=== PATIENT | male | born 1940 | race Caucasian/White ===

== ENCOUNTER 2017-11-04 05:20 | Day surgery (SDC) | payer MEDICARE, SELFPAY ==
[2017-11-04] VITALS (7 sets, daily range): BP systolic 105–139; BP diastolic 70–82; PULSE 68–72; RESP 14–16; TEMP 35.9–36.3; O2SAT 92–94
--- NOTE | 2017-11-04 06:47 | PCM.OPRPT ---
Problem List (1) Rectal bleed Status: Acute Report of Operation Date of Procedure: 11/04/17 Pre-Operative Diagnosis: Rectal bleeding Post-Operative Diagnosis: Patent ileocolonic anastomosis, moderate internal hemorrhoids, no active bleeding Surgery/Procedure Performed:: Colonoscopy Description of Surgical Findings:: Timeout and informed consent was obtained. 77-year-old gentleman was taken to the endoscopy suite. He was placed in left loud skin position. 75 mg Demerol and 2.5 g of Versed were given as intravenous sedation. Digital rectal exam performed. Tight anal tone. No significant external hemorrhoidal disease very minimal. Some mild internal hemorrhoidal disease. The patient is morbidly obese I could not digitally palpate the prostate. No active bleeding noted. Flexible colonoscope inserted the rectum advanced quite readily through the colon. The ileocolonic anastomosis from a previous right colectomy was readily achieved. Bowel prep was actually quite good. The scope was carefully withdrawn from the transverse descending sigmoid colon. Scope was retroflexed within the rectum. The anorectal verge inspected. Internal hemorrhoidal changes noted but not exuberant. No active bleeding. Excess fluid and air was aspirated free the procedure was completed with the patient tolerating it well. Impression Patent ileocolonic anastomosis. Moderate internal hemorrhoids No active bleeding The patient will be reinitiated on his Coumadin. I would recommend at this point fibrous augmentation and conservative observation. The patient's age medical comorbidities and body habitus places him at increased operative risk. If his symptoms resolve then I would not recommend any type of operative intervention. If his symptoms persist then consideration for internal surgical adenoidectomy could be considered. Previous colonoscopy was July 16, 2016 Colonoscopy recommended in 3 years Medications were given at 0626. Scope entered 0629. Cecum was reached at 0633.18. The scope was completed 0639.17. Cc: Dr. Braun and Dr. Félix Davila M.D., F.A.C.S. Type of Anesthesia:: IV Sedation
== END 2017-11-04 07:30 | disposition home or self-care (01) ==
LOC: EN 05:21 → AC 05:21
PROVIDERS: Family Provider Internal Medicine; PCP Internal Medicine; Visit Provider Surgery
PROC: 0DJD8ZZ Inspection of Lower Intestinal Tract, Via Natural or Artificial Opening Endoscopic (ICD-10-PCS; CPT 45378; principal; 2017-11-04 06:25)
DX: K63.89 Other specified diseases of intestine (principal); K64.8 Other hemorrhoids; Z85.038 Personal history of other malignant neoplasm of large intestine; R06.83 Snoring; Z86.2 Personal history of diseases of the blood and blood-forming organs and certain disorders involving the immune mechanism; K21.9 Gastro-esophageal reflux disease without esophagitis; I25.10 Atherosclerotic heart disease of native coronary artery without angina pectoris; Z86.718 Personal history of other venous thrombosis and embolism; Z87.19 Personal history of other diseases of the digestive system; E66.01 Morbid (severe) obesity due to excess calories; E78.5 Hyperlipidemia, unspecified; I87.8 Other specified disorders of veins; Z90.49 Acquired absence of other specified parts of digestive tract; Z79.01 Long term (current) use of anticoagulants; Z79.899 Other long term (current) drug therapy
CPT/HCPCS: 45378; J7120

== ENCOUNTER → 2018-05-19 13:20 | Outpatient (CLI) | payer MEDICARE, SELFPAY ==
--- NOTE | 2018-05-19 13:22 | RAD_ITS ---
STUDY: X-RAY - RIGHT KNEE REASON FOR EXAM: Male, 77 years old. Chronic knee pain. TECHNIQUE: 4 view(s) of the knee. COMPARISON: None. FINDINGS: There is generalized osteopenia. Normal visualized distal femur. There is an osteochondral lesion of the medial tibial plateau. Normal proximal tibiofibular articulation. There is moderate arthrosis of the medial compartment and the patellofemoral compartments of the right knee. There is a joint effusion. There is marked vascular calcification. RAD/Knee 4 or More Views IMPRESSION: Osteopenia with medial and patellofemoral compartment arthrosis. Osteochondral lesion of the medial tibial plateau. Small joint effusion. Electronically Signed: Diogo Abdi MD at 18:23 EDT , Service support ,
== END ==
PROVIDERS: Family Provider Internal Medicine; PCP Internal Medicine; Visit Provider Orthopaedic Surgery
DX: M25.561 Pain in right knee (principal)
CPT/HCPCS: 73564

== ENCOUNTER → 2018-06-07 12:24 | Outpatient (CLI) | payer MEDICARE, SELFPAY ==
--- NOTE | 2018-06-07 12:26 | MRI_ITS ---
STUDY: MRI RIGHT KNEE REASON FOR EXAM: Right knee pain for 8 months. TECHNIQUE: Standardized fat and water weighted pulse sequences were obtained in all 3 orthogonal planes. COMPARISON: Radiographs 05/19/2018. FINDINGS: There is a radial tear of the posterior horn of the medial meniscus (T2 coronal images 10, 11). There is peripheral subluxation of the medial meniscus. There is arthrosis of the medial femorotibial compartment with chondral thinning and a subchondral lesion of the medial tibial plateau (proton-density sagittal images 30-32) measuring 1.8 x 0.9 cm (AP x transverse) with mild adjacent bone edema. Normal medial collateral ligamentous complex (MCL). Normal distal semimembranosus, gracilis and semitendinosus tendons. Normal lateral meniscus. Normal hyaline cartilage of the lateral femorotibial compartment. Normal lateral femoral condyle and tibial plateau. Normal proximal tibiofibular articulation. Normal lateral collateral (fibular) ligament. Normal popliteus tendon. Normal biceps femoris tendon. Normal anterior cruciate ligament (ACL). Normal posterior cruciate ligament (PCL). Normal congruent patellofemoral articulation. There is high-grade chondromalacia patellae (T2 sagittal image 11). Normal medial and lateral patellar retinaculum. Normal visualized quadriceps tendon. Normal patellar tendon. Normal Hoffa's fat pad. There is a small joint effusion. There is a very small popliteal cyst (T2 sagittal images 18-20). There is mild edema in the anterior subcutis adipose space. The otherwise visualized osseous structures are unremarkable. MRI/Lower Ext Joint Only (Routine) IMPRESSION: Radial tear of the medial meniscus. Arthrosis of the medial femorotibial compartment with a subchondral lesion of the medial tibial plateau. Chondromalacia patellae. Small joint effusion. Very small popliteal cyst. Electronically Signed: Bertin Sheehan MD at 13:56 EDT Tel , Service support ,
== END ==
PROVIDERS: Family Provider Internal Medicine; PCP Internal Medicine; Referring Provider Orthopaedic Surgery; Visit Provider Orthopaedic Surgery
DX: M17.11 Unilateral primary osteoarthritis, right knee (principal); M95.8 Other specified acquired deformities of musculoskeletal system
CPT/HCPCS: 73721

== ENCOUNTER → 2018-08-12 09:55 | Outpatient (CLI) | payer MEDICARE, SELFPAY ==
[2018-08-12 11:12] LABS: Hematocrit 43.7 % (40-54); Hemoglobin 13.9 g/dl (13.0-16.5); Mean Corp Hgb Conc 31.8 g/gl (32-36); Mean Corpuscular Hgb 32.8 pg (27.0-32.0); Mean Corpuscular Volume 103.1 fL (80-94); Mean Platelet Vol. 10.4 fl (6.2-12.0); Platelet Count 145 K/mm3 (150-450); RBC Distribution Width CV 13.8 % (11.6-14.6); RBC Distribution Width SD 51.8 fl (35.1-43.9); Red Blood Count 4.24 M/mm3 (4.6-6.2); White Blood Count 5.3 K/mm3 (4.4-11.0)
[2018-08-12 11:14] LABS: Scan Indicated on CBC? Y/N NO
[2018-08-12 11:45] LABS: Anion Gap 6 (5-15); BUN 17 mg/dL (7-18); BUN/Creat Ratio 16.8 RATIO (10-20); Calcium,Total 8.8 mg/dL (8.5-10.1); Chloride 105 mmol/L (98-107); Creatinine, Serum 1.01 mg/dL (0.70-1.30); EST Glomerular Filtration Rate 76 mL/min (>60); Est Glom Filt Rate - Afr Amer 92 mL/min (>60); Glucose 100 mg/dL (74-106); Potassium 4.3 mmol/L (3.5-5.1); Sodium Level 142 mmol/L (136-145)
--- OUTSIDE RECORDS SUMMARY | 2018-09-28 00:27 | XMS RPT_ITS ---
:1940 Author Organization OHIP Support Name Relationship Address Phone Jodie lBack Unavailable Unavailable + Jodie Black Unavailable Unavailable + SofiaCollin blancie Unavailable Unavailable + SOFIA JODIE Unavailable [address] + [place] [address] R Unavailable Unavailable Unavailable SOFIA JODIE Unavailable [address] + [place] [address] R Unavailable Unavailable Unavailable JODIE BLACK Unavailable [address] + [place] [address] R Unavailable Unavailable Unavailable JODIE BLACK Unavailable [address] + [place] [address] R Unavailable Unavailable Unavailable SOFIACOLLINIE Unavailable [address] + [place] [address] R Unavailable Unavailable Unavailable Sofia Jodie Unavailable Unavailable + Jodie Black Unavailable Unavailable + Jodie Black Unavailable Unavailable + JODIE BLACK Unavailable [address] + [place] [address] R Unavailable Unavailable Unavailable JODIE BLACK Unavailable [address] + [place] [address] R Unavailable Unavailable Unavailable JODIE BLACK Unavailable [address] + [place] [address] R Unavailable Unavailable Unavailable Care Team Providers Name Role Phone JORDAN LUGO Attending Unavailable JORDAN LUGO Referring Unavailable Sarmad Strickland Primary Care Unavailable Ji Davila Attending Unavailable Imelda Tyler BELT MAKER-C Referring Unavailable Strickland, Sarmad Primary Care Unavailable Cebul, Ji Attending Unavailable Strickland, Sarmad Primary Care Unavailable Cebul, Ji Referring Unavailable Cebul, Ji Attending Unavailable Cebul, Ji Referring Unavailable Strickland, Sarmad Primary Care Unavailable Cebul, Ji Consulting Unavailable Chicorelli, Kenia Attending Unavailable Strickland, Sarmad Referring Unavailable Strickland, Sarmad Primary Care Unavailable Chicorelli, Kenia Attending Unavailable Chicorelli, Kenia Referring Unavailable Strickland, Sarmad Primary Care Unavailable Chicorelli, Kenia Attending Unavailable Chicorelli, Kenia Referring Unavailable Strickland, Sarmad Primary Care Unavailable WayMason williamson Attending Unavailable Strickland, Sarmad Referring Unavailable Moawad, Jj Attending Unavailable PROVIDER, UNKNOWN Referring Unavailable Strickland, Sarmad Primary Care Unavailable [place], Jj Attending Unavailable PROVIDER, UNKNOWN Referring Unavailable Strickland, Sarmad Primary Care Unavailable [place], Jj Attending Unavailable PROVIDER, UNKNOWN Referring Unavailable Strickland, Sarmad Primary Care Unavailable [place], Jj Attending Unavailable PROVIDER, UNKNOWN Referring Unavailable Strickland, Sarmad Primary Care Unavailable [place], Jj Attending Unavailable PROVIDER, UNKNOWN Referring Unavailable Strickland, Sarmad Primary Care Unavailable [place], Jj Attending Unavailable PROVIDER, UNKNOWN Referring Unavailable Strickland, Sarmad Primary Care Unavailable STRICKLAND, SALONI Referring Unavailable TYLER, IMELDA (SPRAY MAKER) Referring Unavailable TYLER, IMELDA (SPRAY MAKER) Referring Unavailable TYLER, IMELDA (SPRAY MAKER) Referring Unavailable STRICKLAND, SALONI Referring Unavailable TYLER, IMELDA (SPRAY MAKER) Attending Unavailable TYLER, IMELDA (SPRAY MAKER) Referring Unavailable OLDER, AIDEE (SPRAY MAKER) Attending Unavailable STRICKLAND, SALONI Referring Unavailable TYLER, IMELDA (SPRAY MAKER) Referring Unavailable TYLER, IMELDA (SPRAY MAKER) Attending Unavailable TYLER, IMELDA (SPRAY MAKER) Referring Unavailable TYLER, IMELDA (SPRAY MAKER) Referring Unavailable TYLER, IMELDA (SPRAY MAKER) Referring Unavailable TYLER, IMELDA (SPRAY MAKER) Referring Unavailable STRICKLAND, SALONI Referring Unavailable PROBLEMS PROBLEMS DATE TYPE CONDITION / CODE ATTENDING STATUS SOURCE 09/07/2018 Admitting Abdominal aortic Jj Escobar [facility] Diagnosis aneurysm, without System rupture / Repository I71.4(ICD-10) 09/07/2018 Admitting Hyperlipidemia, Jj Escobar Active [facility] Diagnosis unspecified / System E78.5(ICD-10) Repository 09/07/2018 Admitting Personal history of [place], Jj [facility] Diagnosis malignant neoplasm System of large intestine / Repository Z85.038(ICD-10) 09/07/2018 Admitting Encounter for [place], Jj [facility] Diagnosis preprocedural System cardiovascular Repository examination / Z01.810(ICD-10) 09/07/2018 Admitting Nonrheumatic aortic [place], Jj [facility] Diagnosis (valve) stenosis / System I35.0(ICD-10) Repository 09/07/2018 Admitting Cardiomegaly / [place], Jj [facility] Diagnosis I51.7(ICD-10) System Repository 09/07/2018 Admitting Peripheral vascular [place], Jj [employer] [facility] Diagnosis angioplasty status w System implants and grafts Repository / Z95.820(ICD-10) 09/07/2018 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[place], Jj [facility] Diagnosis use of aspirin / System Z79.82(ICD-10) Repository 09/07/2018 Admitting Personal history of [place], Jj [employer] Diagnosis other venous System thrombosis and Repository embolism / Z86.718(ICD-10) 09/07/2018 Admitting Encounter for other [place], Jj [employer] Diagnosis preprocedural System examination / Repository Z01.818(ICD-10) 09/07/2018 Admitting Oth complication of [place], Jj [employer] Diagnosis vascular prosth System dev/grft, init / Repository T82.898A(ICD-10) 09/07/2018 Admitting Other specified [place], Jj [facility] Diagnosis disorders of veins / System I87.8(ICD-10) Repository 09/07/2018 Admitting Morbid (severe) [place], Jj [facility] Diagnosis obesity due to System excess calories / Repository E66.01(ICD-10) 09/07/2018 Admitting Body mass index [place], Jj [facility] Diagnosis (BMI) 40.0-44.9, System adult / Repository Z68.41(ICD-10) 08/29/2018 Active Other correction Active [facility] (current) drug Clinic Main therapy / [place] Z79.899(ICD-10) Repository 08/26/2018 Admitting Unspecified [place], Jj [employer] Diagnosis osteoarthritis, System unspecified site / Repository M19.90(ICD-10) 08/26/2018 Admitting Prsnl history of dis [place], Jj [facility] Diagnosis of the bld/bld-form System org/immun mechn / Repository Z86.2(ICD-10) 08/26/2018 Admitting Benign prostatic [place], Jj [employer] Diagnosis hyperplasia without System lower urinry tract Repository symp / N40.0(ICD-10) 08/26/2018 Admitting Venous insufficiency Mo[place]ad, Jj [employer] 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 Diagnosis vascular implants System and grafts / Repository Z95.828(ICD-10) 02/03/2018 Admitting Benign prostatic [place], Jj [employer] 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 / Clinic Main C18.2(ICD-10) [place] Repository 11/03/2017 Unknown Z85.038 - Personal CebulJi Active [place] history of other Community malignant neoplasm Hospital of large intestine / Repository Z85.038(ICD-10) 11/03/2017 Unknown K62.5 - Hemorrhage CebulJi Active [place] of anus and rectum / Community K62.5(ICD-10) Hospital Repository PROCEDURES PROCEDURES No Procedure Records FoundRESULTS RESULTS ECHO DOBUTAMINE STRESS Observed: 09/07/2018 Status: F Source: [employer] ECHO W/WO CONT 2:10 PM SYSTEM REPOSITORY Patient Name: CORINE BLACK Ultrasound Exam Date/Time 09/07/2018 15:39:53 EST Exam Echo Dobutamine Stress Echo w/wo Cont Ordering Physician JJ ESCOBAR Accession Number [id number] Reason For Exam preop cardiac clearance exam Report STRESS ECHOCARDIOGRAM Dobutamine PATIENT: Corine Black STUDY DATE: 09/07/2018 : 1940 AGE: 78 HT/WT: 172.7 cm (68 127 kg in) (279.4 lb) GENDER: M BP: 150 / 99 LOCATION: [facility] [employer] [facility] and PATIENT Outpatient [facility] STATUS: *ORDERING PHYSICIAN: * Jj Escobar MD *SUPERVISING PHYSICIAN: * Cindy *RN: * Kristin Corley Jeanine Iler, MD, [facility] *READING PHYSICIAN: * Cindy Odonnell, *BARBER: * Yolanda Teague RDCS, MANDY MUELLER, [facility] Oliver Schafer RDCS --- INDICATIONS: Pre-op cardiovascular exam Z01.810. --- HISTORY: Dyslipidemia. Denies cardiac symptoms Colon CA, AAArepair 2012 Medications: Aspirin. Atorvastatin (Lipitor). Allergies: Patient is NPO per policy. --- CONCLUSIONS SUMMARY: 1. Stress echo: There is no evidence for stress-induced ischemia at 95% MPHR. 2. Aortic valve: There is moderate stenosis. Mean gradient (S): 30 mm Hg with dobutamine, 24 mmHg at rest. Peak gradient (S): 62 mm Hg. 3. Aorta: The aorta is mildly dilated to 4.1 cm. 4. Stress ECG conclusions: The stress ECG is normal. --- STUDY DATA: Stress echocardiogram. Procedure: Initial setup. A baseline ECG was recorded. Surface ECG leads and blood pressure measurements were monitored. Total intravenous fluids received during the test were 150 ml. Image quality was adequate. The study was technically limited due to body habitus and respiratory interference. Intravenous imaging enhancement (Definity) was administered to opacify the chamber. Definity lot #: [id number]. Definity dose administered: 8 ml. Definity wasted: 2 ml. Dobutamine stress test. Stress testing was performed, with dobutamine by intravenous infusion from 10 to 30 mcg/kg/min. Heart rate response was augmented by the addition of hand smoke jumper. The infusion was terminated due to target heart rate achievement. Transthoracic stress echocardiography. Images were captured at baseline, low dose, peak dose, and recovery. Total time of infusion 8 min 1 sec M-mode, limited 2D, limited spectral Doppler, and color flow Doppler images were acquired and archived for permanent storage and are available for subsequent review. Study status: Routine. Patient status: Outpatient. Pre pain assessment is 0 out of 10. Post pain assessment is 0 out of 10. Location: Echo laboratory. Consent: The procedure was reviewed with the patient and the patient voices understanding. Study completion: The patient tolerated the procedure well. There were no complications. Discharge: Discharge instructions given The patient was discharged to homewhile ambulatory. --- FINDINGS LEFT VENTRICLE: The cavity size is normal. Wall thickness is normal. Systolic function is normal by visual assessment. The estimated ejection fraction is 60%. There are no regional wall motion abnormalities. RIGHT VENTRICLE: The cavity size is normal. Wall thickness is normal. Systolic function is normal. Right ventricular systolic pressure is within the normal range. MITRAL VALVE: Moderately calcified annulus. Doppler: There is trivial, less than 1+ regurgitation. Valve area by continuity equation (using LVOT flow): 2.5 cm2. Mean gradient (D): 3 mm Hg. Peak gradient (D): 7 mm Hg. AORTIC VALVE: Trileaflet; moderately thickened, moderately calcified leaflets. Doppler: There is moderate stenosis. There is mild, 1+ regurgitation. Dimensionless index: 0.68. Valve area (VTI): 2.4 cm2. Indexed valve area (VTI): 1 cm2/m2. Mean gradient (S): 30 mm Hg. Peak gradient (S): 62 mm Hg. Peak velocity (S): 3.9 m/sec. TRICUSPID VALVE: Structurally normal valve. Doppler: There is no significant regurgitation at rest, peak exercise (MCG 30) RVSP=54 mmHg. AORTA: The aorta is mildly dilated to 4.1 cm. PERICARDIUM: There is no pericardial effusion. BASELINE ECG: Normal sinus rhythm. Isolated atrial ectopy. STRESS PROTOCOL: + +---+ + + !Stage !HR !BP (mmHg) !Symptoms ! + +---+ + + !Baseline !75 !150/99 (116)!None ! + +---+ + + !Dobutamine 10 ug/kg/min!79 !158/71 (100)!Palpitations! + +---+ + + !Peak stress !134!128/65 (86) !Palpitations! + +---+ + + !Recovery; 2 min !127!130/58 (82) !Subsiding ! + +---+ + + !Late recovery !96 !132/74 (93) !None ! + +---+ + + STRESS RESULTS: Peak heart rate during stress was 134 bpm (95% of maximal predicted heart rate). The maximal predicted heart rate was 141 bpm.The target heart rate was achieved. The heart rate response to stress was normal. There is an appropriate response to stress. The rate-pressure product for the peak heart rate and blood pressure was 32446 mm Hg/min. The patient experienced no chest pain during stress. STRESS ECG: There was no ischemic ST depression. There are no stress arrhythmias or conduction abnormalities. The stress ECG is normal. Upsloping ST depression: 0.5-1 mm. Baseline: Normal wall motion; no LV regional wall motion abnormalities. Wall motion score: 1.00. Low dose: No evidence for new LV regional wall motion abnormalities. Peak dose: LV global systolic function is vigorous. The estimated LV ejection fraction is 80%. No evidence for new LV regional wall motion abnormalities. STRESS ECHO RESULTS: There is no evidence for stress- induced ischemia at 95% MPHR. --- Measurements Left ventricle Value Reference LV end-diastolic volume, 1-p A4C (H) 158 ml 67 - 155 LV end-systolic volume, 1-p A4C 35 ml 22 - 58 LV end-diastolic volume, 2-p 147 ml 67 - 155 LV end-systolic volume, 2-p 45 ml 22 - 58 LVOT Value Reference LVOT ID, A-P 2.1 cm --------- LVOT mean velocity, S 1.2 m/sec --------- LVOT VTI, S 28.4 cm --------- LVOT peak gradient, S 12 mm Hg --------- Stroke volume (SV), LVOT DP 100 ml --------- Stroke index (SV/bsa), LVOT DP 40 ml/m2 --------- Aortic valve Value Reference Aortic valve peak velocity, S 3.9 m/sec --------- Aortic valve mean velocity, S 2.6 m/sec --------- Aortic valve VTI, S 41.6 cm --------- Aortic mean gradient, S 30 mm Hg --------- Aortic peak gradient, S 62 mm Hg --------- DI 0.68 --------- Aortic valve area, VTI 2.4 cm2 --------- Aortic valve area/bsa, VTI 1 cm2/m2 --------- Aorta Value Reference Aortic root ID 3.5 cm <4.5 Aortic root ID, STJ, ED 3.0 cm --------- Ascending aorta ID, A-P 4.1 cm --------- Mitral valve Value Reference Mitral mean gradient, D 3 mm Hg --------- Mitral peak gradient, D 7 mm Hg --------- Mitral valve area, LVOT continuity 2.5 cm2 --------- Tricuspid valve Value Reference Tricuspid regurg peak velocity 3.7 m/sec --------- Legend: (L) and (H) cindy values outside specified reference range. Electronically signed by Cindy Odonnell MD, ANTOINETTE 09/07/2018 16:41 Final Dictated: 09/07/2018 4:42 pm Dictating Physician: MD. ANNIE, CINDY CURRY Signed Date and Time: 09/07/2018 4:41 pm Signed by: MD. ODONNELL FACC, MARK A HEMOGRAM Collected: 09/07/2018 Status: F Source: [facility] 11:09 AM SYSTEM REPOSITORY TYPE CODE TESTS RESULT OUT OF RANGE REFERENCE UNITS LAB IWBC 3.6-10.7 10*3/uL WBC Normal 5.4 LAB RBC 4.40-5.90 10*6/uL Low RBC 4.12 LAB HGB 13.0-18.0 g/dL Normal Hemoglobin 13.8 LAB HCT 40.0-52.0 % Normal Hematocrit 41.7 LAB MCV 80.0-98.0 fL High MCV 101.1 LAB MCH 26.0-34.0 pg MCH Normal 33.5 LAB MCHC 32.0-36.0 % MCHC Normal 33.1 LAB RDW 11.5-14.5 % RDW Normal 14.4 LAB PLT 140-440 10*3/uL Platelet Normal 184 LAB MPV 7.4-10.4 fL MPV Normal 8.5 Performed By: #### EDSON CAGLE3 #### [facility] [employer] [address] [address] BASIC METABOLIC PANEL Collected: 09/07/2018 Status: F Source: [facility] 11:09 AM SYSTEM REPOSITORY TYPE CODE TESTS RESULT OUT OF RANGE REFERENCE UNITS LAB NA3 135-145 mmol/L Sodium Normal 141 LAB K3 3.5-5.1 mmol/L Normal Potassium 4.6 LAB CL3 98-107 mmol/L Chloride Normal 104 LAB CO23 22-30 mmol/L High Carbon Dioxide 31 LAB ANIN3 NA Anion Gap 5 LAB GLUC3 70-100 mg/dL Glucose Normal 93 LAB BUN3 7-20 mg/dL Urea Normal Nitrogen 20 LAB CRET3 0.52-1.25 mg/dL Normal Creatinine 0.96 LAB GF3BR >60 mL/min eGFR > 60.0 LAB GF3WR >60 mL/min eGFR OTHER > 60.0 Result Comment: Source- MDRD equation with creatinine calibration to IDMS(NKDEP) eGFR not recommended for drug dose adjustment LAB CA3 8.4-10.4 mg/dL Normal Calcium 9.0 Performed By: #### EDSON CAGLE3 #### [address] [address] BASIC METABOLIC PANL Collected: 08/29/2018 Status: F Source: [facility] 10:18 AM [facility]IN[facility] REPOSITORY TYPE CODE TESTS RESULT OUT OF REFERENCE UNITS RANGE LAB GLU 74-99 mg/dL High Glucose 104 Result Comment: The [place] Diabetes [employer] (ADA) provides guidance for cutoff values for fasting glucose and random glucose. The ADA defines fasting as no caloric intake for at least 8 hours. Fas ting plasma glucose results between 100 to 125 mg/dL indicate increased risk for diabetes (prediabetes). Fasting plasma glucose results greater than or equal to 126 mg/dL meet the criteria for diagnosis of diabetes. In the absence of unequivocal hyperglycemia, results should be confirmed by repeat testing. In a patient with classic symptoms of hyperglycemia or hyperglycemic crisis, random plasma glucose results greater than or equal to 200 mg/dL meet the criteria for diagnosis of diabetes. Reference: Standards of Medical Care in Diabetes 2016, [place] [employer]. Diabetes Care. 2016.39(Suppl 1). LAB BUN 9-24 mg/dL BUN 15 LAB CRET 0.73-1.22 mg/dL Creatinine 0.91 LAB NA 136-144 mmol/L Sodium 141 LAB K 3.7-5.1 mmol/L Potassium 4.7 LAB CL 97-105 mmol/L Chloride 102 LAB CO2 22-30 mmol/L CO2 29 LAB AGAP 9-18 mmol/L Anion Gap 10 LAB CA 8.5-10.2 mg/dL Calcium, Total 9.0 LAB GFRAA eGFR- Amer. >60 LAB GFRNAA . eGFR-All Other Races >60 Result Comment: eGFR (Estimated GFR) Units of measure: mL/min/1.73 meters squared eGFR is derived from the reexpressed MDRD Study equation using the following parameters: serum creatinine, age, gender and race. The creatinine assay has been calibrated to be traceable to IDMS. An eGFR <60 mL/min/1.73m2 for >3 months is consistent with chronic kidney disease. Refer to KDOQI guidelines for clinical interpretation. In patients with unstable renal function, e.g. those with acute kidney injury, the eGFR may not accurately reflect actual GFR. Performed By: #### BMP, LIPB #### [facility] [address] [place] [address] LIPID PANEL, BASIC Collected: 08/29/2018 Status: F Source: [facility] 10:18 AM [facility] REPOSITORY TYPE CODE TESTS RESULT OUT OF REFERENCE UNITS RANGE LAB CHOL <200 mg/dL Cholesterol 145 Result Comment: <200 mg/dL, Desirable 200-239 mg/dL, Borderline high >239 mg/dL, High LAB TRIGLY <150 mg/dL Triglyceride 75 Result Comment: <150 mg/dL, Normal 150-199 mg/dL, Borderline high 200-499 mg/dL, High >499 mg/dL, Very high LAB HDL >39 mg/dL HDL-Cholesterol 46 Result Comment: 40-59 mg/dL, Acceptable >59 mg/dL, High: Negative risk factor for coronary heart disease <40 mg/dL, Low: Positive risk factor for coronary heart disease LAB LDL <100 mg/dL LDL-Cholesterol 84 Result Comment: <100 mg/dL, Optimal 100-129 mg/dL, Near optimal/above optimal 130-159 mg/dL, Borderline high 160-189 mg/dL, High >189 mg/dL, Very high Secondary prevention optimal LDL Cholesterol levels are recommended to be < 70 mg/dL LAB NONHDL <130 mg/dL Non HDL Cholesterol 99 Result Comment: <130 mg/dL, Optimal 130-159 mg/dL, Near optimal/above optimal 160-189 mg/dL, Borderline high 190-219 mg/dL, High >219 mg/dL, Very high Secondary prevention optimal non HDL Cholesterol levels are recommended to be < 100 mg/dL LAB FT hrs Fasting Time 12 LAB VLDL <30 mg/dL VLDL Cholesterol 15 LAB TCHDL <5.10 TC:HDL Ratio 3.15 LAB LDLHDL <2.54 LDL:HDL Ratio 1.83 Result Comment: Reference: 1. National Cholesterol Education Program ATP III Guideline At-A-Glance Quick Desk Reference: National Heart, Lung, and Blood [place]. National Institutes of Health. 2001: NIH Publication No. 01-3305. 2. An International Atherosclerosis Society position paper: global recommendations for the management of dyslipidemia: executive summary, Atherosclerosis. 2014: 232(2):410-413. Performed By: #### BMP, LIPB #### [place] [id number] OP NOTE Observed: 08/26/2018 Status: F Source: [facility] 6:15 PM SYSTEM REPOSITORY PATIENT: CORINE BLACK ADMISSION DATE: 08/26/2018 SURGERY DATE: 08/26/2018 DATE OF : 1940 AGE: 78 ADMITTING PHYSICIAN: Jj Escobar MD ATTENDING PHYSICIAN: Jj Escobar MD DICTATING PHYSICIAN: Jj Escobar MD OPERATIVE RECORD Procedure: AORTOGRAM AND LEFT ILIAC ANGIOGRAM VIA LEFT FEMORAL SHEATH. Preoperative Diagnosis: Enlarging abdominal aortic aneurysm, status post endovascular aneurysm repair. Postoperative Diagnosis: Enlarging abdominal aortic aneurysm, status post endovascular aneurysm repair. Anesthesia: MAC. Bone Tender: Lincoln Ball M.D. Estimated Blood Loss: 25 mL. Contrast: Visipaque 100 mL. Indications: This patient is a 78-year-old gentleman with a history of infrarenal abdominal aortic aneurysm and bilateral iliac aneurysms, status post endovascular repair including exclusion of the right hypogastric artery 5 years ago. The aneurysm has been gradually increasing in size, now measuring 9.2 cm in diameter on outside CT scan. He presents now for evaluation for endoleak. Findings: There is approximately a 5 mm gap and wall apposition of the distal extent of the left common iliac stent with the aneurysmal common iliac bifurcation wall. Initially, a guidewire easily tracked up to the more proximal common iliac artery. There are at least 2 small lumbar arteries that are seen but do not fill the aneurysm sac. The aortic seal zones and modular connections are all intact. The right external iliac seal zone is intact. There is a patent left hypogastric artery. There is severe scar tissue of the left groin. Bilateral dorsalis pedis and posterior tibial Doppler signals were present and unchanged before and after the procedure. Description of Procedure: After informed consent, the patient was brought to the hybrid operating room and placed supine. After IV sedation had been given. Both groins were prepped and draped in sterile fashion. Following infiltration of 1% lidocaine, the left common femoral artery was punctured percutaneously with an 18-gauge needle and an 0.035 Bentson wire advanced. A 5-Vietnamese sheath could not track over the wire due to scar tissue. A 6-Vietnamese hydrophilic dilator was passed. The sheath still could not advance. Using a 0.035 [place] catheter, the wire was exchanged for a Lunderquist wire. A 5-Vietnamese sheath tracked over the Lunderquist wire into the left common femoral artery. There was excellent pulsatile backbleeding. The Lunderquist wire was then removed and a Bentson wire was used. The Bentson wire initially tracked between the outer wall of the left common iliac stent. An Omni Flush catheter was then advanced to the common femoral bifurcation and this easily tracked into the true lumen of the left iliac stent into the aortic portion of the graft without difficulty. AP and oblique aortograms were then performed with the catheter at the level of the renal arteries. The catheter was then pulled down to the aortic bifurcation. AP and oblique aortoiliac angiograms were performed with a calibrated pigtail catheter for measurement. The catheter was then pulled back. The patient was then transferred to the labor relations manager prep in the recovery area where the sheath was removed. Manual pressure was held. There was excellent hemostasis. There were good bilateral Doppler signals. Plan for left iliac extension is discussed with the patient and his son after ordering stent graft and undergoing a preoperative cardiac evaluation. Diskriter Job ID: [id number] Jj Escobar MD DOD:08/26/2018 06:15 P JAM/dsk DOT:08/26/2018 08:31 P Job Number: [id number] Document Number: [id number] cc: Jj Escobar MD [facility], [facility] [address] [facility] [address] CREATININE Collected: 08/26/2018 Status: F Source: [facility] 12:33 PM SYSTEM REPOSITORY TYPE CODE TESTS RESULT OUT OF RANGE REFERENCE UNITS LAB CRET3 0.52-1.25 mg/dL Normal Creatinine 0.76 LAB GF3BR >60 mL/min eGFR > 60.0 LAB GF3WR >60 mL/min eGFR OTHER > 60.0 Result Comment: Source- MDRD equation with creatinine calibration to IDMS(NKDEP) eGFR not recommended for drug dose adjustment Performed By: #### CRTN3 #### [facility] [address] [place] [id number] CNPTOUTREACH Observed: 08/16/2018 Status: COMPLETED Source: [place] 12:[address] [facility] REPOSITORY Patient Outreach ([facility]) CORINE BLACK ([id number]) 1940 M Date Time Provider Department 08/16/18 SARMAD STRICKLAND [facility] During your visit today, we recorded the following information about you: Allergies As of Date: 08/16/2018 (No Known Allergies) Date Reviewed: 07/27/2018 Reviewed by: Sobeida Conley Ct - Fully Assessed Visit Diagnosis:Medication management [Z79.899] Order(s):BASIC METABOLIC PNL [SQBMP] Order #: [id number] FUTURE LIPID PANEL BASIC [SQLIPB] Order #: [id number] FUTURE Prescriptions as of 08/16/2018 Sig: ACETAMINOPHEN ER 650 MG TABLE* Take 1,300 mg by mouth as nee* ASPIRIN 81 MG TABLET,DELAYED * Take 1 tablet by mouth once d* ATORVASTATIN 20 MG TABLET TAKE 1 TABLET DAILY AT BEDTIM* COMPOUNDED PRESCRIPTION KNEE HIGH COMPRESSION STOCKIN* HYDROCODONE 5 MG-ACETAMINOPHE* Take 1 tablet by mouth every * MOMETASONE 0.1 % TOPICAL OINT* Apply 1 application to affect* NAPROXEN SODIUM 220 MG TABLET Take 220 mg by mouth as neede* Problem List As Of Date 08/16/2018 Noted Resolved DVT, recurrent, lower extremity, chronic [I82.5*INVALID FOR* More... Hyperlipidemia [E78.5] INVALID FOR* More... VENTRAL HERNIA NEC [K43.9] INVALID FOR*12/04/2014 Obesity, Class III, BMI 40-49.9 (morbid obesity*INVALID FOR* SYNCOPE AND COLLAPSE [R55] INVALID FOR*10/22/2006 More... BPH with obstruction/lower urinary tract sympto*INVALID FOR* Impotence of organic origin [N52.9] INVALID FOR*06/05/2014 Lumbago [M54.5] INVALID FOR*06/05/2014 Venous stasis dermatitis [I83.10] INVALID FOR* Pelvic hematoma in male [N50.1] INVALID FOR*06/05/2014 More... Actinic Keratoses (Premalignant AK's) [L57.0] INVALID FOR* Neoplasm of uncertain behavior of skin [D48.5] INVALID FOR*06/05/2014 Other seborrheic keratosis [L82.1] INVALID FOR* Solar Lentigines [L81.4] INVALID FOR*02/28/2016 Actinic skin damage [L57.8] INVALID FOR*02/28/2016 Xerosis cutis [L85.3] INVALID FOR*06/05/2014 Postinflammatory skin changes [R23.4] INVALID FOR*06/05/2014 Stucco keratosis [L85.1] INVALID FOR*02/28/2016 Iron deficiency anemia due to chronic blood los*INVALID FOR*09/02/2016 Pain in right hip [M25.551] INVALID FOR* Malignant neoplasm of colon (HCC) [C18.9] INVALID FOR*10/09/2015 Cancer of ascending colon (HCC) [C18.2] INVALID FOR* Metastatic cancer to intra-abdominal lymph node*INVALID FOR* Abdominal aortic aneurysm without rupture (HCC)*INVALID FOR* Encounter Status:Closed by EPIC, PRODUSER on 08/31/18 CBC-COMPLETE BLOOD CNT Collected: 08/12/2018 Status: F Source: [place] NO DIFF 10:17 AM [facility] REPOSITORY TYPE CODE TESTS RESULT OUT OF RANGE REFERENCE UNITS LAB L100.1000 4.4-11.0 K/mm3 Normal WBC 5.3 LAB L100.1200 4.6-6.2 M/mm3 Low RBC 4.24 LAB L100.1300 13.0-16.5 g/dl Normal HGB 13.9 LAB L100.1400 40-54 % Normal HCT 43.7 LAB L100.1500 80-94 fL High MCV 103.1 LAB L100.1600 27.0-32.0 pg High MCH 32.8 LAB L100.1700 32-36 g/gl Low MCHC 31.8 LAB L100.1810 11.6-14.6 % Normal RDW CV 13.8 LAB L100.1820 35.1-43.9 fl High RDW SD 51.8 LAB L100.1900 150-450 K/mm3 Low PLT 145 LAB L100.2000 6.2-12.0 fl Normal MPV 10.4 Performed By: #### L100.0500 #### [facility] [address] [place], [address] BASIC METABOLIC Collected: 08/12/2018 Status: F Source: [place] PROFILE (BMP) 10:17 AM [facility] REPOSITORY TYPE CODE TESTS RESULT OUT OF RANGE REFERENCE UNITS LAB L501.0100 74-106 mg/dL Normal GLU 100 Result Comment: Fasting Glucose result from 100 to 125 mg/dL suggests IMPAIRED HOMEOSTASIS per A.D.A. criteria. Please note revised GLUCOSE reference range effective 2017. LAB L501.1000 7-18 mg/dL Normal BUN 17 LAB L501.1100 0.70-1.30 mg/dL Normal CREAT,SERUM 1.01 Result Comment: The validity of the calculated GFR AND GFRAA in patients over 70 years has not been determined. Clinical correlation is essential. LAB L501.1110 >60 mL/min Normal EST GFR 76 Result Comment: Non- GFR Calc LAB L501.1115 >60 mL/min Normal EST GFR - AA 92 Result Comment: GFR Calc LAB L501.1300 10-20 RATIO Normal BUN/CRE 16.8 LAB L501.2200 8.5-10.1 mg/dL CA Normal 8.8 LAB L501.5300 136-145 mmol/L NA Normal 142 LAB L501.5600 3.5-5.1 mmol/L K Normal 4.3 LAB L501.5900 98-107 mmol/L CL Normal 105 LAB L501.6100 21.0-32.0 mmol/L Normal CO2 31.0 LAB L501.6200 5-15 Normal GAP 6 Performed By: #### L500.2500 #### [facility] [address] [place], [address] CT ABD/PEL W IVCON Observed: 07/27/2018 Status: F Source: [place] 10:[address] [facility] REPOSITORY * * *Final Report* * * DATE OF EXAM: Jul 27 2018 10:37AM [facility] 0530 - CT ABD/PEL W IVCON / PROCEDURE REASON: multiple diagnoses * * * * Physician Interpretation * * * * EXAMINATION: CT ABDOMEN AND PELVIS WITH IV CONTRAST CLINICAL HISTORY: Colon cancer status post RIGHT hemicolectomy TECHNIQUE: CT of the abdomen and pelvis was performed using standard technique, scanning from just above the dome of the diaphragm to the symphysis pubis. MQ: CTAP_3 Contrast: IV: 150 ml of Omnipaque 300 Oral: 50 ml of 50ML Omnipaque [address] Radiation dose: Integrated Dose-length product (DLP) for this visit = 864 mGy*cm. CT Dose Reduction Employed: Automated exposure control(AEC) and iterative recon COMPARISON: 12-28-17 CT. RESULT: Liver: Stable low-attenuation densities LEFT hepatic lobe 1 cm in diameter (3:9 and 3:17). Stable inferior hepatic 4 mm density (5:71 Biliary: No bile duct dilation. High attenuation focus along the dependent region gallbladder involving a length of about 4 mm consistent with focal wall calcifications or small gallstones. Spleen: No mass. No splenomegaly. Pancreas: No mass or duct dilation. Adrenals: No mass. Kidneys: Benign renal cysts. GI tract: No dilatation or wall thickening is evident. Lymph nodes: No abdominal or pelvic lymphadenopathy. Mesentery/Peritoneum: No ascites. Stable fatty density anterior mesentery 1.1 cm in diameter. Follow-up Retroperitoneum: No abnormal fluid collection Vasculature: The celiac axis and SMA are patent. The portal vein and branches, splenic vein, SMV, and hepatic veins are patent. Status post endovascular repair of abdominal aortic aneurysm with RIGHT sided stent extending to the RIGHT external iliac artery and LEFT to the level of the distal common iliac artery. The lytton lumen is slightly larger. The level of the L4 vertebral body the diameter of the lytton lumen 7.2 x 6.9 cm (3:73) versus 7.0 x 6.7 cm previously. Slightly more inferior is a lobulated contour to the aneurysm with dimensions of 9.3 x 6.2 cm (3:80) versus 8.1 x 5.6 cm previously. There is high attenuation in the posterior aspect of the lytton lumen images 63 and 76-84. 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 Right internal iliac artery occluded with associated distal interventional embolic material. Pelvis: No mass, ascites or fluid collection. Collateral veins anterior pelvic subcutaneous fat. Bones/Soft Tissues: Ventral midline diaphragmatic wall hernia containing bowel not significantly changed. Lower thorax: Unremarkable. IMPRESSION: No findings suggestive of malignancy. Further dilatation of lytton abdominal aortic aneurysm status post stenting. Possibility of endovascular leak. Stable size of iliac artery aneurysms with interval LEFT internal iliac aneurysm mural thrombus. Stable hepatic densities suggestive of cysts. It Security Manager: MARIO Transcribe Date/Time: Jul 29 2018 10:00A Dictated by : CINDY FRANK MD This examination was interpreted and the report reviewed and electronically signed by: CINDY FRANK MD on Jul 29 2018 10:30AM EST [id number] Observed: 07/27/2018 Status: COMPLETED Source: [place] 10:[address] [facility] REPOSITORY O ID: [id number] Author: Sobeida Conley Ct Service: (none) Author Type: (none) Type: Progress Notes Filed: 07/27/2018 10:35 AM Note Text: Radiology Service Progress Note PATIENT NAME: Corine Black DATE OF SERVICE: July 27, 2018 TIME: 10:34 AM PATIENT IDENTITY VERIFICATION COMPLETED USING TWO (2) METHODS: Patient confirmed name verbally and Date of . PATIENT GENDER DATA: Male PATIENT RELEVANT IMPLANT DATA REVIEWED: Not Applicable CONTRAST INDUCED NEPHROPATHY RISK FACTORS: Patient age > 60 years CREATININE: Creatinine Date Value Ref Range Status 07/27/2018 0.94 0.73 - 1.22 mg/dL Final 09/06/2017 1.13 0.73 - 1.22 mg/dL Final 08/28/2016 0.85 0.73 - 1.22 mg/dL Final Creatinine, Whole Blood (iSTAT) Date Value Ref Range Status 07/01/2017 0.90 0.70 - 1.40 mg/dL Final 12/02/2016 0.90 0.70 - 1.40 mg/dL Final eGFR-All Other Races Date Value Ref Range Status 07/27/2018 >60 . Final Comment: eGFR (Estimated GFR) Units of measure: mL/min/1.73 meters squared eGFR is derived from the reexpressed MDRD Study equation using the following parameters: serum creatinine, age, gender and race. The creatinine assay has been calibrated to be traceable to IDMS. An eGFR <60 mL/min/1.73m2 for >3 months is consistent with chronic kidney disease. Refer to KDOQI guidelines for clinical interpretation. In patients with unstable renal function, e.g. those with acute kidney injury, the eGFR may not accurately reflect actual GFR. eGFR- Date Value Ref Range Status 07/27/2018 >60 Final P.O.C.T. RESULTS: POC done: Yes, See Lab Tab July 27, 2018 RADIOLOGIST NOTIFIED?: No ALLERGIES: Reviewed and unchanged CONTRAST ALLERGY: NO. PERIPHERAL IV ACCESS: Ambulatory: IV type: A peripheral IV was started in the Left antecubital site with a Angio cath: 22 gauge., Site assessment: Clean,Dry and Intact, Site disposition Discontinued RADIOLOGY DEPARTMENT: CT; Exam(s) Completed: Abdomen/Pelvis SIGNED BY: Sobeida Osborn July 27, 2018 10:34 AM CREATININE Collected: 07/27/2018 Status: F Source: [place] 8:[address] [facility] REPOSITORY TYPE CODE TESTS RESULT OUT OF REFERENCE UNITS RANGE LAB CRET 0.73-1.22 mg/dL Creatinine 0.94 LAB GFRAA eGFR- >60 Amer. LAB GFRNAA . eGFR-All Other Races >60 Result Comment: eGFR (Estimated GFR) Units of measure: mL/min/1.73 meters squared eGFR is derived from the reexpressed MDRD Study equation using the following parameters: serum creatinine, age, gender and race. The creatinine assay has been calibrated to be traceable to IDMS. An eGFR <60 mL/min/1.73m2 for >3 months is consistent with chronic kidney disease. Refer to KDOQI guidelines for clinical interpretation. In patients with unstable renal function, e.g. those with acute kidney injury, the eGFR may not accurately reflect actual GFR. PROGRESS Observed: 07/12/2018 Status: COMPLETED Source: [place] 10:[address] [facility] REPOSITORY HNO ID: [id number] Author: Jeanine Varela (Lex) LEX Hu Service: (none) Author Type: LICENSED NURSE Type: Progress Notes Filed: 07/12/2018 10:42 AM Note Text: 77 year old male here for INACTIVATED INFLUENZA VACCINE. 5717-2791 Season Patient is identified by name and date of : Yes [] CONTRAINDICATIONS color enhanced section Age less than 6 months? No Allergy to eggs, chicken, chicken feathers, or chicken dander? No Allergy to thimerosal (a preservative) or formaldehyde, gelatin? No History of severe reaction to any vaccine component or a previous dose of influenza vaccination? No History of Guillain-Higganum Syndrome within 6 weeks after a previous influenza vaccine? No Patient is not moderately or severely ill? No Current temperature greater or equal to 100.4F? No History of Bone Marrow Transplant prior 6 months or solid organ transplant in the past 3 months ? No History of fainting after a prior injection or medical procedure? No- ? If patient has fainted in the past, the CDC recommends sitting or lying down for 15 minutes after the vaccination. [] VERIFICATION color enhanced section Was the answer Yes for any of the above contraindications? No contraindications present. Acceptable to proceed with vaccine. Patient/guardian agrees the above answers are true to the best of their knowledge? Yes Flu vaccine information sheet given? Yes See immunization activity in [facility] for details of immunizations adminstered today. Patient age: [age] year old For The 1242-5726 Flu Season 6-35 months old: Fluzone 0.25 ml - IM (Preservative Free) 3 years of age: Fluzone 0.5 ml - IM (Preservative Free) 3 years and older: Fluzone 0.5 ml- IM-(with Preservatives) 65+ years old: 2-49 years old Fluzone High-Dose 0.5 ml - IM (Preservative Free) FLUMIST- intranasal REMEMBER: If patient is less than 9 years of age and this is the first vaccine of Influenza to be received in any flu season, they should receive a second dose in one months time. PROGRESS Observed: 07/12/2018 Status: COMPLETED Source: [place] 9:52 AM [facility] REPOSITORY O ID: [id number] Author: Imelda Tyler Service: (none) Author Type: Nurse Practitioner Type: Progress Notes Filed: 07/12/2018 10:42 AM Note Text: Chief Complaint Patient presents with: Established Patient Imm/Inj: Flu Vaccine HPI: Corine Black is a 77 year old male who presents here today for follow up colon cancer. Per Dr. Tse's previous note: H/o aortic aneurysm?and recurrent DVT?who was found to have significant CLIFFORD. Received transfusion and underwent endoscopy. ?? Colonoscopy 07/24/2015: A fungating, infiltrative and ulcerated partially obstructing large mass was found in the ascending colon. The mass was partially circumferential (involving two-thirds of the lumen circumference). Biopsies were taken with a cold forceps for histology. Estimated blood loss was minimal. Area was tattooed with an injection of Katharine ink. A 20 mm polyp was found in the recto-sigmoid colon. The polyp was sessile. The polyp was removed with a saline injection-lift technique using a hot snare. Resection and retrieval were complete. Estimated blood loss was minimal. To close a defect after polypectomy, two hemostatic clips were successfully placed. There was no bleeding at the end of the procedure. Impression: - Malignant partially obstructing tumor in the ascending colon. Removal was not done. Biopsied. Tattooed. - One 20 mm polyp at the recto-sigmoid colon. Resected and retrieved. Clips were placed. ?? CT A/P--small liver lesions. ?? MRI--Benign liver lesions. ?? Underwent surgery 09/12/2015: Right colon, right hemicolectomy - Invasive moderately differentiated adenocarcinoma. See synoptic and comment. - Tumor invades into the pericolonic adipose tissue. - Perineural and lymphovascular space invasion noted, including extramural venous invasion. - Metastatic adenocarcinoma in two lymph nodes (2/37). - Separate minute tubular adenoma. - Unremarkable terminal ileum. - Fibrous obliteration of the appendiceal tip. - Negative surgical margins. DSA/plj 09/17/2015 COMMENT Focal dystrophic calcifications are noted within the tumor. SYNOPTIC REPORT OF WIN PATHOLOGIC FINDINGS RIGHT HEMICOLECTOMY: COLON AND RECTUM:RESECTION, INCLUDING TRANSANAL DISK EXCISION OF RECTAL NEOPLASMS WORKSHEET: Specimen: Terminal ileum Cecum Appendix Ascending colon Procedure: Right hemicolectomy Primary Tumor Site: Right (ascending) colon Additional Sites Involved by Tumor: None identified Macroscopic Tumor Perforation: Not identified Macroscopic Intactness of Mesorectum: Not applicable: . Histologic Type: Adenocarcinoma Histologic Grade: Low-grade (well-differentiated to moderately differentiated) Histologic Features Suggestive of Microsatellite Instability: Intratumoral Lymphocytic Response (tumor-infiltrating lymphocytes)-None Peritumor Lymphocytic Response (Crohn-like response)-Mild to moderate Tumor Subtype and Differentiation-Tumor heterogeneity Tumor Size: Greatest dimension: 5.5 cm Microscopic Tumor Extension: Tumor invades through the muscularis propria into the subserosal adipose tissue or the nonperitonealized pericolic or perirectal soft tissues but does not extend to the serosal surface Distance of invasive carcinoma from closest margin: 3 cm Margin: Circumferential (Radial) Proximal Margin: Uninvolved by invasive carcinoma - No adenoma or intraepithelial neoplasia/dysplasia identified Distal Margin: Uninvolved by invasive carcinoma - No adenoma or intraepithelial neoplasia/dysplasia identified Circumferential Radial Margin: Uninvolved by invasive carcinoma Mesenteric Margin: Uninvolved by invasive carcinoma Deep Margin (Transanal Disk Excision): Not applicable: . Mucosal Margin(s) Transanal Disk Excision: Not applicable: . Treatment Effect: No prior treatment Lymph-Vascular Invasion: Present Extramural venous invasion: Yes Elastic stain performed: No Perineural Invasion: Present Tumor Deposits: Not identified Ancillary Studies: Microsatellite Instability-Addendum to follow TNM Descriptors: Not applicable: . Pathologic Staging (pTNM): pT3: Tumor invades through the muscularis propria into pericolorectal tissues Regional Lymph Nodes (pN): pN1b: Metastasis in 2 to 3 regional lymph nodes Number of nodes examined: 37 Number of nodes involved: 2 Distant Metastasis (pM): Not applicable: ?? ? Current therapy: 1) Adjuvant FOLFOX. First cycle 11/06/2015. Dose reduced 5-FU for cycle 2. Stopped after cycle #4 due to patient's reluctance to complete chemotherapy for financial reasons. ? Colonoscopy done on 07/16/16-Dr. Joe. Next due 06/2017. ?? Colonoscopy done in October 2017-Dr. Davila. 02/03/18-arteriogram in [place]. R knee pain-CPM follows-had injection last week. Was seen by Ortho for this also. ? Appetite:good Energy level:It could use a shot in the arm of energy. I'm doing pretty good I think. Denies fevers or recent illness. Resp:denies cough or sob Cardiac:denies chest pain/palpitations GI:denies abd pain, n/v, moving bowels regularly :denies dysuria/hematuria Extrem:chronic R knee pain as above Neuro:denies symptoms of neuropathy Skin:denies rashes/lesions Heme:denies bleeding The ROS is otherwise negative. Past medical history, appointments, medications, allergies reviewed. No changes. EXAM: BP 104/57 Pulse 64 Temp 36.2 ?C (97.1 ?F) (Temporal Artery) Wt 122 kg (269 lb) BMI 42.13 kg/m? APPEARANCE Well appearing, alert, in no acute distress, well-hydrated, well nourished. HEART RRR with normal S1 and S2, no murmurs LUNG clear to auscultation LYMPH NODES No cervical lymphadenopathy, No supraclavicular lymphadenopathy and No axillary lymphadenopathy. ABDOMEN obese, bowel sounds normoactive, soft, non-tender, non-distended, without organomegaly or palpable masses EXTREMITIES No edema NEURO Awake, alert and oriented x 3, Normal gait and No involuntary motions. SKIN Skin color, texture, turgor normal, no suspicious rashes or lesions LABS: CEA: Pending ASSESSMENT/PLAN: 1. Cancer of ascending colon (HCC) - ICD9: 153.6, ICD10: C18.2 - No concerning findings on exam. - CEA pending. - Flu shot today. - CT abd/pelvis soon. - Follow up in 6 months with CEA-pending today's CEA/CT result. - Pt. aware to call office with any questions/concerns. ? The patient indicates understanding of these issues and agrees with the plan. Imelda Tyler, CHEMICAL LABORATORY ASSISTANT.SPRAY MAKER CEA Collected: 07/12/2018 Status: F Source: [place] 9:[address] [facility] REPOSITORY TYPE CODE TESTS RESULT OUT OF RANGE REFERENCE UNITS LAB CEA 0.0-2.9 ng/mL CEA 2.0 Result Comment: Test analyzed by the Buddy DxI method. Performed By: #### CEA #### [facility] [address] [id number] CNOVSP Observed: 07/12/2018 Status: COMPLETED Source: [place] 9:[address] [facility] REPOSITORY Visit (SP) Office (HEMAWS) CORINE BLACK ([id number]) 1940 M Date Time Provider Department 11/13/18 9:30 AM IMELDA TYLER During your visit today, we recorded the following information about you: Temperature Pulse Blood pressure Weight 97.1 degrees 64/minute 104/57 122 kg Imelda Tyler APRN.SPRAY MAKER 07/12/2018 10:42 AM Signed Chief Complaint Patient presents with: Established Patient Imm/Inj: Flu Vaccine HPI: Corine Black is a 77 year old male who presents here today for follow up colon cancer. Per Dr. Tse's previous note: H/o aortic aneurysm?and recurrent DVT?who was found to have significant CLIFFORD. Received transfusion and underwent endoscopy. ?? Colonoscopy 07/24/2015: A fungating, infiltrative and ulcerated partially obstructing large mass was found in the ascending colon. The mass was partially circumferential (involving two-thirds of the lumen circumference). Biopsies were taken with a cold forceps for histology. Estimated blood loss was minimal. Area was tattooed with an injection of Katharine ink. A 20 mm polyp was found in the recto-sigmoid colon. The polyp was sessile. The polyp was removed with a saline injection-lift technique using a hot snare. Resection and retrieval were complete. Estimated blood loss was minimal. To close a defect after polypectomy, two hemostatic clips were successfully placed. There was no bleeding at the end of the procedure. Impression: - Malignant partially obstructing tumor in the ascending colon. Removal was not done. Biopsied. Tattooed. - One 20 mm polyp at the recto-sigmoid colon. Resected and retrieved. Clips were placed. ?? CT A/P--small liver lesions. ?? MRI--Benign liver lesions. ?? Underwent surgery 09/12/2015: Right colon, right hemicolectomy - Invasive moderately differentiated adenocarcinoma. See synoptic and comment. - Tumor invades into the pericolonic adipose tissue. - Perineural and lymphovascular space invasion noted, including extramural venous invasion. - Metastatic adenocarcinoma in two lymph nodes (2/37). - Separate minute tubular adenoma. - Unremarkable terminal ileum. - Fibrous obliteration of the appendiceal tip. - Negative surgical margins. DSA/plj 09/17/2015 COMMENT Focal dystrophic calcifications are noted within the tumor. SYNOPTIC REPORT OF [facility] PATHOLOG[facility] FINDINGS RIGHT HEMICOLECTOMY: COLON AND RECTUM:RESECTION, INCLUDING TRANSANAL DISK EXCISION OF RECTAL NEOPLASMS WORKSHEET: Specimen: Terminal ileum Cecum Appendix Ascending colon Procedure: Right hemicolectomy Primary Tumor Site: Right (ascending) colon Additional Sites Involved by Tumor: None identified Macroscopic Tumor Perforation: Not identified Macroscopic Intactness of Mesorectum: Not applicable: . Histologic Type: Adenocarcinoma Histologic Grade: Low-grade (well-differentiated to moderately differentiated) Histologic Features Suggestive of Microsatellite Instability: Intratumoral Lymphocytic Response (tumor-infiltrating lymphocytes)-None Peritumor Lymphocytic Response (Crohn-like response)-Mild to moderate Tumor Subtype and Differentiation-Tumor heterogeneity Tumor Size: Greatest dimension: 5.5 cm Microscopic Tumor Extension: Tumor invades through the muscularis propria into the subserosal adipose tissue or the nonperitonealized pericolic or perirectal soft tissues but does not extend to the serosal surface Distance of invasive carcinoma from closest margin: 3 cm Margin: Circumferential (Radial) Proximal Margin: Uninvolved by invasive carcinoma - No adenoma or intraepithelial neoplasia/dysplasia identified Distal Margin: Uninvolved by invasive carcinoma - No adenoma or intraepithelial neoplasia/dysplasia identified Circumferential Radial Margin: Uninvolved by invasive carcinoma Mesenteric Margin: Uninvolved by invasive carcinoma Deep Margin (Transanal Disk Excision): Not applicable: . Mucosal Margin(s) Transanal Disk Excision: Not applicable: . Treatment Effect: No prior treatment Lymph-Vascular Invasion: Present Extramural venous invasion: Yes Elastic stain performed: No Perineural Invasion: Present Tumor Deposits: Not identified Ancillary Studies: Microsatellite Instability-Addendum to follow TNM Descriptors: Not applicable: . Pathologic Staging (pTNM): pT3: Tumor invades through the muscularis propria into pericolorectal tissues Regional Lymph Nodes (pN): pN1b: Metastasis in 2 to 3 regional lymph nodes Number of nodes examined: 37 Number of nodes involved: 2 Distant Metastasis (pM): Not applicable: ?? ? Current therapy: 1) Adjuvant FOLFOX. First cycle 11/06/2015. Dose reduced 5-FU for cycle 2. Stopped after cycle #4 due to patient's reluctance to complete chemotherapy for financial reasons. ? Colonoscopy done on 07/16/16-Dr. Joe. Next due 06/2017. ?? Colonoscopy done in October 2017-Dr. Davila. 02/03/18-arteriogram in [place]. R knee pain-CPM follows-had injection last week. Was seen by Ortho for this also. ? Appetite:good Energy level:It could use a shot in the arm of energy. I'm doing pretty good I think. Denies fevers or recent illness. Resp:denies cough or sob Cardiac:denies chest pain/palpitations GI:denies abd pain, n/v, moving bowels regularly :denies dysuria/hematuria Extrem:chronic R knee pain as above Neuro:denies symptoms of neuropathy Skin:denies rashes/lesions Heme:denies bleeding The ROS is otherwise negative. Past medical history, appointments, medications, allergies reviewed. No changes. EXAM: BP 104/57 Pulse 64 Temp 36.2 ?C (97.1 ?F) (Temporal Artery) Wt 122 kg (269 lb) BMI 42.13 kg/m? APPEARANCE Well appearing, alert, in no acute distress, well- hydrated, well nourished. HEART RRR with normal S1 and S2, no murmurs LUNG clear to auscultation LYMPH NODES No cervical lymphadenopathy, No supraclavicular lymphadenopathy and No axillary lymphadenopathy. ABDOMEN obese, bowel sounds normoactive, soft, non-tender, non-distended, without organomegaly or palpable masses EXTREMITIES No edema NEURO Awake, alert and oriented x 3, Normal gait and No involuntary motions. SKIN Skin color, texture, turgor normal, no suspicious rashes or lesions LABS: CEA: Pending ASSESSMENT/PLAN: 1. Cancer of ascending colon (HCC) - ICD9: 153.6, ICD10: C18.2 - No concerning findings on exam. - CEA pending. - Flu shot today. - CT abd/pelvis soon. - Follow up in 6 months with CEA-pending today's CEA/CT result. - Pt. aware to call office with any questions/concerns. ? The patient indicates understanding of these issues and agrees with the plan. Imelda Tyler, ERNIE.CORNELL Hu, AUTOMOBILE AND PROPERTY UNDERWRITER, AUTOMOBILE AND PROPERTY UNDERWRITER 07/12/2018 10:42 AM Signed 77 year old male here for INACTIVATED INFLUENZA VACCINE. 1605-1031 Season Patient is identified by name and date of : Yes [] CONTRAINDICATIONS color enhanced section Age less than 6 months? No Allergy to eggs, chicken, chicken feathers, or chicken dander? No Allergy to thimerosal (a preservative) or formaldehyde, gelatin? No History of severe reaction to any vaccine component or a previous dose of influenza vaccination? No History of Guillain-Higganum Syndrome within 6 weeks after a previous influenza vaccine? No Patient is not moderately or severely ill? No Current temperature greater or equal to 100.4F? No History of Bone Marrow Transplant prior 6 months or solid organ transplant in the past 3 months ? No History of fainting after a prior injection or medical procedure? No- ? If patient has fainted in the past, the CDC recommends sitting or lying down for 15 minutes after the vaccination. [] VERIFICATION color enhanced section Was the answer Yes for any of the above contraindications? No contraindications present. Acceptable to proceed with vaccine. Patient/guardian agrees the above answers are true to the best of their knowledge? Yes Flu vaccine information sheet given? Yes See immunization activity in [facility] for details of immunizations adminstered today. Patient age: [age] year old For The 2031-0503 Flu Season 6-35 months old: Fluzone 0.25 ml - IM (Preservative Free) 3 years of age: Fluzone 0.5 ml - IM (Preservative Free) 3 years and older: Fluzone 0.5 ml- IM-(with Preservatives) 65+ years old: 2-49 years old Fluzone High-Dose 0.5 ml - IM (Preservative Free) FLUMIST- intranasal REMEMBER: If patient is less than 9 years of age and this is the first vaccine of Influenza to be received in any flu season, they should receive a second dose in one months time. 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 Discontinue saline lock post exam. If Pt. has a central line or IVAD, may access for administration according to line specific nursing protocol. Once exam is complete flush line and de-access according to line specific nursing protocol in the CT contrast administration guidelines link.Disp: 1 EachRfl: 0 enteric contrast (will be provided with radiology test)For CT CHESTABD/PEL W IVCON Routine order Administer, As Directed One Time Only, via Oral, Rectal, both Oral and Rectal, Enteric Tube, Stoma or Indwelling Catheter, Enteric Contrast as designated per enteric contrast guidelinesDisp: 1 EachRfl: 0 CREATININE BLD [SQCRET] Order #: [id number] FUTURE [] influenza vaccine 180 mcg (Patients 65 years and older) (PF) (FLUZONE HIGH DOSE )Disp: Rfl: Follow-up and Disposition History Recorded Prescriptions as of 07/12/2018 Sig: ASPIRIN 81 MG TABLET,DELAYED * Take 1 tablet by mouth once d* MOMETASONE 0.1 % TOPICAL OINT* Apply 1 application to affect* ATORVASTATIN 20 MG TABLET TAKE 1 TABLET DAILY AT BEDTIM* HYDROCODONE 5 MG-ACETAMINOPHE* Take 1 tablet by mouth every * COMPOUNDED PRESCRIPTION KNEE HIGH COMPRESSION STOCKIN* NAPROXEN SODIUM 220 MG TABLET Take 220 mg by mouth as neede* ACETAMINOPHEN ER 650 MG TABLE* Take 1,300 mg by mouth as nee* IV CONTRAST (RADIOLOGY PROCED* CT Chest ABD/PEL-Inject, intr* ENTERIC CONTRAST (RADIOLOGY P* For CT CHESTABD/PEL W IVCON R* Problem List As Of Date 07/12/2018 Noted Resolved DVT, recurrent, lower extremity, chronic [I82.5*INVALID FOR* More... Hyperlipidemia [E78.5] INVALID FOR* More... VENTRAL HERNIA NEC [K43.9] INVALID FOR*12/04/2014 Obesity, Class III, BMI 40-49.9 (morbid obesity*INVALID FOR* SYNCOPE AND COLLAPSE [R55] INVALID FOR*10/22/2006 More... BPH with obstruction/lower urinary tract sympto*INVALID FOR* Impotence of organic origin [N52.9] INVALID FOR*06/05/2014 Lumbago [M54.5] INVALID FOR*06/05/2014 Venous stasis dermatitis [I83.10] INVALID FOR* Pelvic hematoma in male [N50.1] INVALID FOR*06/05/2014 More... Actinic Keratoses (Premalignant AK's) [L57.0] INVALID FOR* Neoplasm of uncertain behavior of skin [D48.5] INVALID FOR*06/05/2014 Other seborrheic keratosis [L82.1] INVALID FOR* Solar Lentigines [L81.4] INVALID FOR*02/28/2016 Actinic skin damage [L57.8] INVALID FOR*02/28/2016 Xerosis cutis [L85.3] INVALID FOR*06/05/2014 Postinflammatory skin changes [R23.4] INVALID FOR*06/05/2014 Stucco keratosis [L85.1] INVALID FOR*02/28/2016 Iron deficiency anemia due to chronic blood los*INVALID FOR*09/02/2016 Pain in right hip [M25.551] INVALID FOR* Malignant neoplasm of colon (HCC) [C18.9] INVALID FOR*10/09/2015 Cancer of ascending colon (HCC) [C18.2] INVALID FOR* Metastatic cancer to intra-abdominal lymph node*INVALID FOR* Abdominal aortic aneurysm without rupture (HCC)*INVALID FOR* Encounter Status:Closed by IMELDA TYLER CNP on 07/12/18 ORTHOPEDIC VISIT Observed: 06/23/2018 Status: F Source: [place] REPORT 10:41 AM [facility] REPOSITORY [facility] Orthopaedics AND Sports Medicine [address] [place] [address] OFFICE VISIT Date of Service: 06/23/18 MR#: [id number] Acct: [id number] Name: CORINE BLACK Rep #: [id number] : 1940 Provider: FARHAN Franklin Age/Sex: 77/M Location: [facility] Status: Signed Intake Intake Visit Reasons: knee pain Allergies No Known Allergies Allergy (Verified 11/03/17 10:03) Medications Acetaminophen [Tylenol Arthritis] 1,300 mg PO DAILY 06/03/15 [History Confirmed 05/19/18] atorvastatin 20 mg tablet 20 mg PO QDAY 11/02/17 [History Confirmed 05/19/18] naproxen sodium 220 mg capsule 220 mg PO Q12H PRN 11/02/17 [History Confirmed 05/19/18] Hydrocodone Bitart/Apap 5-325 [Raiford 5MG-325MG] 1 tab PO Q6H PRN PRN 11/03/17 [History Confirmed 05/19/18] PFSH Medical History History of colon cancer (Acute) Snoring (Acute) Iron deficiency anemia (Acute) GERD (gastroesophageal reflux disease) (Acute) CAD (coronary artery disease) (Acute) Arrhythmia (Acute) Pelvic hematoma (Acute) DVT (deep venous thrombosis) (Acute) Ventral hernia (Acute) Syncope and collapse (Acute) Obesity (Acute) Hyperlipemia (Acute) Cardiomegaly (Acute) Surgical History S/P colonoscopy (Acute) History of esophagogastroduodenoscopy (EGD) (Acute) S/P repair of ventral hernia (Acute) Status post aortic coarctation stent placement (Acute) Status post amputation (Acute) Social History Smoking Status: Never smoker second hand exposure: No alcohol intake: never substance use type: does not use caffeine: Yes what type of physical activity do you participate in: none frequency: does not exercise seatbelt use: always HPI knee pain: Details: CORINE BLACK is a 77 year old M here today for a followup on his right knee MRI. Patient states that he continues to have knee pain and his pain is severe. He ambulates with a slow, antaglic gait due to his pain. Patient complains of pain over his entire knee. He had an MRI which is here for review. ROS Const Reports system reviewed and no additional complaints, except as docu Eyes Reports system reviewed and no additional complaints, except as docu ENT Reports system reviewed and no additional complaints, except as docu Card Reports system reviewed and no additional complaints, except as docu Resp Reports system reviewed and no additional complaints, except as docu GI Reports system reviewed and no additional complaints, except as docu Reports system reviewed and no additional complaints, except as docu Musc Reports joint pain Skin/Breast Reports system reviewed and no additional complaints, except as docu Neuro Yes system reviewed and no additional complaints, except as docu Psych Reports system reviewed and no additional complaints, except as docu Endo Reports system reviewed and no additional complaints, except as docu Ortho Exam Right Knee Swelling: Yes Homans Sign: No Knee ROM: No ROM-Flexion 0-140, Yes ROM-Extension -20 to 0 Examination: Yes Med jt line tenderness, Yes Crepitus, Yes Pain with flexion Assessment AND Plan Problems 1. Chronic pain of right knee M25.561; G89.29 2. Arthritis of right knee M17.11 Plan Patient was here today to discuss and go over his MRI results. We did discuss the impression findings as well as look at the actual images on the computer. We discussed the para meniscal cysts as well as meniscal tear and extrusion. We also discussed the medial compartment arthritis as well as the osteochondral lesion on the tibial plateau area. At this time patient has been getting injections to the knee from pain management and really can continue with those injections at the same time they have been sparse in terms of improvement. Patient has had some cardiac history including procedure for aortic aneurysms and therefore will likely require cardiac clearance for any type of surgical procedure to the knee. At this time we discussed that a simple arthroscopic cleanout is not likely to provide much relief from his pains. We discussed other options which include continued injections, bracing, or knee replacements. Patient states he is going to think about it but is likely going to talk with a surgeon to learn more about the procedures. Patient was given names of Dr. Diaz [facility] as well as Dr. Caceres who will be starting here in August. Patient can notify the office with any questions in the meantime. Coding Level of Care Code Off vis,est,level 2 Diagnoses Chronic pain of right knee M25.561; G89.29 Chronicity: chronic Arthritis of right knee M17.11 06/23/18 1041 <Electronically signed by Mason REAL> Date Mason Dahlignsolitario Signature: Date (if applicable) CC: LOWER EXT JOINT ONLY Observed: 06/07/2018 Status: F Source: [place] (ROUTINE) 12:26 PM [facility] REPOSITORY [facility] Imaging Services [address] [place] [address] Lower Ext Joint Only (Routine) MR#: [id number] Acct: [id number] Name: CORINE BLACK Rep #: [id number] : 1940 M 77 From: Bertin Sheehan MD PCP: Sarmad Strickland MD Status: REG CLI Study: Lower Ext Joint Only (Routine) Date of Exam: 06/07/18 Exam# [id number] Ordering Dr: Kenia Prado DO STUDY: MRI RIGHT KNEE REASON FOR EXAM: Right knee pain for 8 months. TECHNIQUE: Standardized fat and water weighted pulse sequences were obtained in all 3 orthogonal planes. COMPARISON: Radiographs 05/19/2018. FINDINGS: There is a radial tear of the posterior horn of the medial meniscus (T2 coronal images 10, 11). There is peripheral subluxation of the medial meniscus. There is arthrosis of the medial femorotibial compartment with chondral thinning and a subchondral lesion of the medial tibial plateau (proton-density sagittal images 30-32) measuring 1.8 x 0.9 cm (AP x transverse) with mild adjacent bone edema. Normal medial collateral ligamentous complex (MCL). Normal distal semimembranosus, gracilis and semitendinosus tendons. Normal lateral meniscus. Normal hyaline cartilage of the lateral femorotibial compartment. Normal lateral femoral condyle and tibial plateau. Normal proximal tibiofibular articulation. Normal lateral collateral (fibular) ligament. Normal popliteus tendon. Normal biceps femoris tendon. Normal anterior cruciate ligament (ACL). Normal posterior cruciate ligament (PCL). Normal congruent patellofemoral articulation. There is high-grade chondromalacia patellae (T2 sagittal image 11). Normal medial and lateral patellar retinaculum. Normal visualized quadriceps tendon. Normal patellar tendon. Normal Hoffa's fat pad. There is a small joint effusion. There is a very small popliteal cyst (T2 sagittal images 18-20). There is mild edema in the anterior subcutis adipose space. The otherwise visualized osseous structures are unremarkable. MRI/Lower Ext Joint Only (Routine) IMPRESSION: Radial tear of the medial meniscus. Arthrosis of the medial femorotibial compartment with a subchondral lesion of the medial tibial plateau. Chondromalacia patellae. Small joint effusion. Very small popliteal cyst. Electronically Signed: Bertin Sheehan MD at 13:56 EDT Tel , Service support , CC: Kenia Prado DO; Sarmad Strickland MD It Security Manager: Signed ORTHOPEDIC VISIT Observed: 05/19/2018 Status: F Source: [place] REPORT 4:14 PM [facility] REPOSITORY [facility] Orthopaedics AND Sports Medicine [address] [place] [address] OFFICE VISIT Date of Service: 05/19/18 MR#: [id number] Acct: [id number] Name: CORINE BLACK Rep #: [id number] : 1940 Provider: Kenia Prado DO Age/Sex: 77/M Location: [facility] [place] Status: Signed Intake Intake Visit Reasons: RIGHT KNEE Allergies No Known Allergies Allergy (Verified 11/03/17 10:03) Medications Acetaminophen [Tylenol Arthritis] 1,300 mg PO DAILY 06/03/15 [History Confirmed 05/19/18] atorvastatin 20 mg tablet 20 mg PO QDAY 11/02/17 [History Confirmed 05/19/18] naproxen sodium 220 mg capsule 220 mg PO Q12H PRN 11/02/17 [History Confirmed 05/19/18] Hydrocodone Bitart/Apap 5-325 [Raiford 5MG-325MG] 1 tab PO Q6H PRN PRN 11/03/17 [History Confirmed 05/19/18] PFSH Medical History History of colon cancer (Acute) Snoring (Acute) Iron deficiency anemia (Acute) GERD (gastroesophageal reflux disease) (Acute) CAD (coronary artery disease) (Acute) Arrhythmia (Acute) Pelvic hematoma (Acute) DVT (deep venous thrombosis) (Acute) Ventral hernia (Acute) Syncope and collapse (Acute) Obesity (Acute) Hyperlipemia (Acute) Cardiomegaly (Acute) Surgical History S/P colonoscopy (Acute) History of esophagogastroduodenoscopy (EGD) (Acute) S/P repair of ventral hernia (Acute) Status post aortic coarctation stent placement (Acute) Status post amputation (Acute) Social History Smoking Status: Never smoker second hand exposure: No alcohol intake: never substance use type: does not use caffeine: Yes what type of physical activity do you participate in: none frequency: does not exercise seatbelt use: always HPI RIGHT KNEE: Details: CORINE BLACK is a 77 year old M here today for right knee pain, he states that he has had pain for years. He saw a doctor last june who gave him and injection and told him he did not need surgery. He has been seeing Dr Vieira, last injection in the right knee was a month ago. He has pain when standing, no pain with sitting. No formal PT, he tried an otc brace. He has history of DVT in 2010 and states that the entire leg is always slightly bigger. Denies numbness, tingling or other associated symptoms, no clicking or popping but he does have feeling of instability on carpeted stairs. Raiford is helpful and used prn. Ortho Exam Right Knee Skin/Wound: Yes CDI Contralateral Normal: Yes Swelling: Yes Knee ROM: Yes ROM-Extension -20 to 0, Yes ROM-Flexion 0-140 (110) Examination: Yes Crepitus, No Med jt line tenderness, No Lat jt line tenderness, No Pain with extention, Yes Pain with flexion Quad Atrophy: No Assessment AND Plan 1. Osteoarthritis of right knee, unspecified osteoarthritis type M17.11 Plan difficult to ascertain current history as patient is not forthcoming with his medical issues/problems. i will need to follow up with pcp as to why he isnt on coumadin as i have report stating acute dvts in 05/2017 with no repeat ultrasounds, and leg is larger than left. his pain is around the kneecap and deep. questionable subchondral edema medial tibial plateau and need to compare to previous xrays to ascertain whether he needs mri, however justine denies falling on knee or pain along medial joint line today. still nonop surgical candidate d/t chronic medical conditions and would treat with injections, etc. discussed with patient and stated that losing weight would help him and he wanted to know exactly how many pounds he needed to lose- which is why i stated he needed to see a gas singer to figure out BMI, programs, etc. patient not exactly thrilled with having to lose weight and not interested in why weight program at this time. will send note to pcp, will await previous xray images of right knee on disc, and will see patient back after we have the disc. justine was given written instructions on how to obtain disc and where to bring/send. All questions answered. Patient in agreement of plan. Personally reviewed the patient's medical history, medications, surgeries and recent exams if available. X-rays were reviewed. There is no obvious fracture, dislocation, or lucency noted but there is evidence of old fracture of the medial femoral condyle. Educated the patient on the anatomy of the knee and etiology of his pain. Explained that he has OA, and without seeing the xrays of the original injury there can be different ways to treat the knee pain. He has tricompartmental OA. His treatment options are do nothing, steroid injections, gel injections, PT and HEP or consult for TKA. Reviewed the risk he is at without taking a blood thinner or having a filter due to his DVTs and aortic aneurysms. Educated on the importance of weight loss and that may give him some knee pain relief. Follow up as needed or sooner if pain, swelling, numbness or associated symptoms, or concerns develop. All questions answered. Patient in agreement of plan. Plan Detail Other Orders Orders: Coding Level of Care Code Off vis,new,level 3 Diagnoses Osteoarthritis of right knee, unspecified osteoarthritis type M17.11 Osteoarthritis type: unspecified 05/19/18 1614 <Electronically signed by Kenia Prado DO> Date Kenia Prado DO Cosigner Signature: Date (if applicable) CC: Sarmad Strickland MD KNEE 4 OR MORE Observed: 05/19/2018 Status: F Source: [place] VIEWS 1:22 PM [facility] REPOSITORY [facility] Imaging Services [address] [place] [address] Knee 4 or More Views MR#: [id number] Acct: [id number] Name: CORINE BALCK Rep #: [id number] : 1940 M 77 From: Diogo Abdi MD PCP: Sarmad Strickland MD Status: REG CLI Study: Knee 4 or More Views Date of Exam: 05/19/18 Exam# [id number] Ordering Dr: Kenia Prado DO STUDY: X-RAY - RIGHT KNEE REASON FOR EXAM: Male, 77 years old. Chronic knee pain. TECHNIQUE: 4 view(s) of the knee. COMPARISON: None. FINDINGS: There is generalized osteopenia. Normal visualized distal femur. There is an osteochondral lesion of the medial tibial plateau. Normal proximal tibiofibular articulation. There is moderate arthrosis of the medial compartment and the patellofemoral compartments of the right knee. There is a joint effusion. There is marked vascular calcification. RAD/Knee 4 or More Views IMPRESSION: Osteopenia with medial and patellofemoral compartment arthrosis. Osteochondral lesion of the medial tibial plateau. Small joint effusion. Electronically Signed: Diogo Abdi MD at 18:23 EDT , Service support , CC: Kenia Prado DO; Sarmad Strickland MD It Security Manager: Signed PROGRESS Observed: 03/01/2018 Status: COMPLETED Source: [place] 8:32 AM [facility] [place] REPOSITORY [facility] ID: [id number] Author: Aidee Garcia) Older Service: (none) Author Type: Nurse Practitioner Type: Progress Notes Filed: 03/01/2018 9:43 AM Note Text: CC: Patient presents with: F/U 6 Month HPI Corine Black is a 77 year old male who presents today for 6 month follow-up. Denies any concerns or issues today. History of AAA repair. Routine follow-up imaging showed slowly enlarging AAA sac despite EVAR in 2011. Arteriogram on 02/02 which showed a small type 2 endoleak. Patient was advised to stop Coumadin which he had been on since 2011 for DVT right leg. Leak was attributed to Coumadin, was discontinued and started on baby ASA. Patient denies any worsening swelling, redness or pain in lower extremities. Denies abdominal or back pain. BPH: No current treatment. Reports nocturia 2-3 times a night which is normal for him. Denies hesitancy, urgency, dribbling, incontinence, decreased stream or hematuria. REVIEW OF SYSTEMS General: no fevers, no chills, no night sweats, no change in appetite, no change in energy and no significant changes in weight Respiratory: no cough, no wheezing, no shortness of breath Cardiovascular: no chest pain, no chest pressure and no palpitations. Chronic swelling right lower extremity, no worse than usual. Wears compression socks daily. PAST MEDICAL HISTORY Diagnosis Date - Arrhythmia - Cancer of ascending colon (HCC) 10/09/2015 - Cardiomegaly 10/11/2006 Per CXR 09/05 - Coronary artery disease - DVT, recurrent, lower extremity, chronic (HCC) 09/25/2006 Right Thigh. Protein C low. 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 - PMH - PAST MEDICAL HISTORY OF 1971 Fall from house, trauma to kidney, lungs - recovered completely - Snoring - Syncope and collapse 10/11/2006 Near Syncopy x 1, 10/06 - Work up negative in [place], records available - Venous stasis dermatitis 05/22/2010 - VENTRAL HERNIA NEC 10/11/2006 PAST SURGICAL HISTORY Procedure Laterality Date - AMPUTATION FINGER/THUMB 1960 Pinky finger on right hand due to an accident - COLONOSCOP W/ OR W/O [facility] SPEC 07/22/15 Colonoscopy - COLONOSCOP W/ OR W/O [facility] SPEC 07/16/2016 Colonoscopy - EGD W/O OR W/BRUSH/WASH 07/11/15 EGD - ENDOVASC AAA STENT REPAIR [facility] - PAST SURGICAL HISTORY OF 09/12/2015 Exploratory laparoscopy, exploratory laparotomy and comprehensive adhesiolysis, extended oncologic right hemicolectomy with complete mesocolic excision and high vascular tie, partial omentectomy and lymph node dissection below the duodenum and along the greater curvature of the stomach, stapled kiur-kz-cwyu anastomosis with sutured closure of mesenteric defect. - PORTOCATH PLACEMENT 10/29/15 - REMOVAL HERMELINDO VAD W PORT/PUMP Right 07/20/16 Removal right IJ port - REP INIT INCI/VENTRAL HERNIA REDUCIBLE [facility] - TUNNEL VAD W SUB Q PORT >=5 Right 10-29-15 ALLERGIES Patient has no known allergies. MEDICATIONS aspirin, enteric coated (ASPIRIN, ENTERIC COATED) 81 mg EC tablet Take 1 tablet by mouth once daily. atorvastatin (LIPITOR) 20 mg tablet TAKE 1 TABLET DAILY AT BEDTIME FOR CHOLESTEROL mometasone (ELOCON) 0.1 % ointment Apply 1 application to affected area once daily as needed. HYDROcodone-acetaminophen (NORCO) 5-325 mg per tablet Take 1 tablet by mouth every 4 hours as needed. COMPOUNDED PRESCRIPTION KNEE HIGH COMPRESSION STOCKINGS 30- 40 MM. ICD9: 454.1, ICD10: I83.11 (primary diagnosis)(HCC) - ICD9: 453.50, ICD10: I82.501 naproxen sodium (ANAPROX) 220 mg tablet Take 220 mg by mouth as needed. warfarin (COUMADIN) 2.5 mg tablet TAKE 3 TABLETS (7.5 MG) WEDNESDAY, WEDNESDAY, AND WEDNESDAY AND TAKE 4 TABLETS (10 MG) ALL OTHER DAYS OR DIRECTED acetaminophen 650 mg CR tablet Take 1,300 mg by mouth as needed. FAMILY HISTORY Problem Relation Age of Onset - None Mother Live to age 87 - None Father at age 72 - None Sister Has 9 sisters, one has diabetes, parkinson's, 2 - Heart Disease and Blood clot - Blood Clot [OTHER] Son Had clot after accident Social History Substance Use Topics - Smoking status: Never Smoker - Smokeless tobacco: Never Used - Alcohol use No PHYSICAL EXAM BP 130/80 Pulse (!) 50 Temp 36.1 ?C (97 ?F) (Temporal Artery) Resp 16 Wt 126.1 kg (278 lb) SpO2 95% BMI 43.54 kg/m? General Appearance: well appearing, in no acute distress, alert, obese Neck: Thyroid normal size and symmetric without palpable nodules, Neck supple, No adenopathy Lungs: Lungs clear to auscultation. No wheezing, rhonchi, rales Heart: RRR with grade 2/6 systolic murmur. No gallop or rubs. No ectopy Abdomen: Abdomen soft, non-tender. Bowel sounds normal. No masses, organomegaly but difficult exam due to obese abdomen Ext: Chronic 2+ non-pitting edema to right lower extremity with venous stasis changes, compression sock on. No edema LLE, chronic venous stasis changes present. ZOSTER VACCINE (SHINGRIX)(1 of 2) due on 08/15/1989-declined DTAP,TDAP,TD(1 - Tdap) due on 12/29/2007-declined INFLUENZA(1) due on 04/30/2018 DIABETES SCREEN due on 09/06/2020 COLORECTAL CANCER SCREENING,SEE MODIFIER due on 11/04/2020 LIPID SCREEN due on 09/06/2022 ADULT PREVNAR-13 Completed PNEUMOVAX AGE 65 AND OVER WITH 5YR LOOKBACK Completed ASSESSMENT/PLAN: 1. Abdominal aortic aneurysm without rupture (HCC) - ICD9: 441.4, ICD10: I71.4 (primary diagnosis) Leaky repair likely secondary to Coumadin. Asymptomatic Coumadin discontinued as instructed by vascular surgeon, continue with daily baby ASA Follow-up with vascular as advised 2. 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 Hyperlipidemia, unspecified hyperlipidemia type - ICD9: 272.4, ICD10: E78.5 - Stable - Continue current medication. 4. BPH with obstruction/lower urinary tract symptoms - ICD9: 600.01, 599.69, ICD10: N40.1, N13.8 Stable Continue to monitor 5. Varicose veins of right lower extremity with inflammation - ICD9: 454.1, ICD10: I83.11 Elocon refilled Prescription instructions reviewed with patient as applicable. Potential red flag symptoms discussed with the patient. Reviewed appropriate action plan to take if red flag symptoms occur. Patient agreeable to treatment plan. EFREN MuñizOV Observed: 03/01/2018 Status: COMPLETED Source: [place] 8:[address] [facility] REPOSITORY Office Visit (INTMWS) SOFIACORINE ([id number]) 1940 M Date Time Provider Department 03/01/18 8:20 AM AIDEE YORK ([place]NE[place]) INTMWS During your visit today, we recorded the following information about you: Temperature Pulse Respiration Blood pressure 97 degrees 74/minute 16/minute 130/80 Weight 126.1 kg Aidee York APRN.CNP 03/01/2018 9:43 AM Signed CC: Patient presents with: F/U 6 Month HPI Corine Jadiel Black is a 77 year old male who presents today for 6 month follow-up. Denies any concerns or issues today. History of AAA repair. Routine follow-up imaging showed slowly enlarging AAA sac despite EVAR in 2011. Arteriogram on 02/02 which showed a small type 2 endoleak. Patient was advised to stop Coumadin which he had been on since 2011 for DVT right leg. Leak was attributed to Coumadin, was discontinued and started on baby ASA. Patient denies any worsening swelling, redness or pain in lower extremities. Denies abdominal or back pain. BPH: No current treatment. Reports nocturia 2-3 times a night which is normal for him. Denies hesitancy, urgency, dribbling, incontinence, decreased stream or hematuria. REVIEW OF SYSTEMS General: no fevers, no chills, no night sweats, no change in appetite, no change in energy and no significant changes in weight Respiratory: no cough, no wheezing, no shortness of breath Cardiovascular: no chest pain, no chest pressure and no palpitations. Chronic swelling right lower extremity, no worse than usual. Wears compression socks daily. PAST MEDICAL HISTORY Diagnosis Date - Arrhythmia - Cancer of ascending colon (HCC) 10/09/2015 - Cardiomegaly 10/11/2006 Per CXR 09/05 - Coronary artery disease - DVT, recurrent, lower extremity, chronic (HCC) 09/25/2006 Right Thigh. Protein C low. 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 - PMH - PAST MEDICAL HISTORY OF 1972 Fall from house, trauma to kidney, lungs - recovered completely - Snoring - Syncope and collapse 10/11/2006 Near Syncopy x 1, 10/06 - Work up negative in [place], records available - Venous stasis dermatitis 05/22/2010 - VENTRAL HERNIA NEC 10/11/2006 PAST SURGICAL HISTORY Procedure Laterality Date - AMPUTATION FINGER/THUMB 1960 Pinky finger on right hand due to an accident - COLONOSCOP W/ OR W/O [facility] SPEC 07/22/15 Colonoscopy - COLONOSCOP W/ OR W/O [facility] SPEC 07/16/2016 Colonoscopy - EGD W/O OR W/BRUSH/WASH 07/11/15 EGD - ENDOVASC AAA STENT REPAIR [facility] - PAST SURGICAL HISTORY OF 09/12/2015 Exploratory laparoscopy, exploratory laparotomy and comprehensive adhesiolysis, extended oncologic right hemicolectomy with complete mesocolic excision and high vascular tie, partial omentectomy and lymph node dissection below the duodenum and along the greater curvature of the stomach, stapled hukg-aw-kumc anastomosis with sutured closure of mesenteric defect. - PORTOCATH PLACEMENT 10/29/15 - REMOVAL HERMELINDO VAD W PORT/PUMP Right 07/20/16 Removal right IJ port - REP INIT INCI/VENTRAL HERNIA REDUCIBLE [facility] - TUNNEL VAD W SUB Q PORT >=5 Right 16 ALLERGIES Patient has no known allergies. MEDICATIONS aspirin, enteric coated (ASPIRIN, ENTERIC COATED) 81 mg EC tablet Take 1 tablet by mouth once daily. atorvastatin (LIPITOR) 20 mg tablet TAKE 1 TABLET DAILY AT BEDTIME FOR CHOLESTEROL mometasone (ELOCON) 0.1 % ointment Apply 1 application to affected area once daily as needed. HYDROcodone-acetaminophen (NORCO) 5-325 mg per tablet Take 1 tablet by mouth every 4 hours as needed. COMPOUNDED PRESCRIPTION KNEE HIGH COMPRESSION STOCKINGS 30- 40 MM. ICD9: 454.1, ICD10: I83.11 (primary diagnosis)(HCC) - ICD9: 453.50, ICD10: I82.501 naproxen sodium (ANAPROX) 220 mg tablet Take 220 mg by mouth as needed. warfarin (COUMADIN) 2.5 mg tablet TAKE 3 TABLETS (7.5 MG) WEDNESDAY, WEDNESDAY, AND WEDNESDAY AND TAKE 4 TABLETS (10 MG) ALL OTHER DAYS OR DIRECTED acetaminophen 650 mg CR tablet Take 1,300 mg by mouth as needed. FAMILY HISTORY Problem Relation Age of Onset - None Mother Live to age 87 - None Father at age 72 - None Sister Has 9 sisters, one has diabetes, parkinson's, 2 - Heart Disease and Blood clot - Blood Clot [OTHER] Son Had clot after accident Social History Substance Use Topics - Smoking status: Never Smoker - Smokeless tobacco: Never Used - Alcohol use No PHYSICAL EXAM BP 130/80 Pulse (!) 50 Temp 36.1 ?C (97 ?F) (Temporal Artery) Resp 16 Wt 126.1 kg (278 lb) SpO2 95% BMI 43.54 kg/m? General Appearance: well appearing, in no acute distress, alert, obese Neck: Thyroid normal size and symmetric without palpable nodules, Neck supple, No adenopathy Lungs: Lungs clear to auscultation. No wheezing, rhonchi, rales Heart: RRR with grade 2/6 systolic murmur. No gallop or rubs. No ectopy Abdomen: Abdomen soft, non-tender. Bowel sounds normal. No masses, organomegaly but difficult exam due to obese abdomen Ext: Chronic 2+ non-pitting edema to right lower extremity with venous stasis changes, compression sock on. No edema LLE, chronic venous stasis changes present. ZOSTER VACCINE (SHINGRIX)(1 of 2) due on 08/15/1989-declined DTAP,TDAP,TD(1 - Tdap) due on 12/29/2007-declined INFLUENZA(1) due on 04/30/2018 DIABETES SCREEN due on 09/06/2020 COLORECTAL CANCER SCREENING,SEE MODIFIER due on 11/04/2020 LIPID SCREEN due on 09/06/2022 ADULT PREVNAR-13 Completed PNEUMOVAX AGE 65 AND OVER WITH 5YR LOOKBACK Completed ASSESSMENT/PLAN: 1. Abdominal aortic aneurysm without rupture (HCC) - ICD9: 441.4, ICD10: I71.4 (primary diagnosis) Leaky repair likely secondary to Coumadin. Asymptomatic Coumadin discontinued as instructed by vascular surgeon, continue with daily baby ASA Follow-up with vascular as advised 2. 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 Hyperlipidemia, unspecified hyperlipidemia type - ICD9: 272.4, ICD10: E78.5 - Stable - Continue current medication. 4. BPH with obstruction/lower urinary tract symptoms - ICD9: 600.01, 599.69, ICD10: N40.1, N13.8 Stable Continue to monitor 5. Varicose veins of right lower extremity with inflammation - ICD9: 454.1, ICD10: I83.11 Elocon refilled Prescription instructions reviewed with patient as applicable. Potential red flag symptoms discussed with the patient. Reviewed appropriate action plan to take if red flag symptoms occur. Patient agreeable to treatment plan. EFREN Muñiz APRN.CNP 03/01/2018 8:49 AM Signed You are due for Shingles vaccination. Call office to schedule if you decide to have this done You are also due for tetanus shot but this is not covered by your insurance. You will need to have one right away if you sustain any deep lacerations or puncture wounds. 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, unspecified laterality (HCC) [I82.509] Hyperlipidemia, unspecified hyperlipidemia type [E78.5] BPH with obstruction/lower urinary tract symptoms [N40.1, N13.8] Varicose veins of right lower extremity with inflammation [I83.11] Order(s):mometasone (ELOCON) 0.1 % ointmentApply 1 application to affected area once daily as needed.Disp: 45 gRfl: 2 Prescriptions as of 03/01/2018 Sig: ASPIRIN 81 MG TABLET,DELAYED * Take 1 tablet by mouth once d* MOMETASONE 0.1 % TOPICAL OINT* Apply 1 application to affect* ATORVASTATIN 20 MG TABLET TAKE 1 TABLET DAILY AT BEDTIM* HYDROCODONE 5 MG-ACETAMINOPHE* Take 1 tablet by mouth every * COMPOUNDED PRESCRIPTION KNEE HIGH COMPRESSION STOCKIN* NAPROXEN SODIUM 220 MG TABLET Take 220 mg by mouth as neede* ACETAMINOPHEN ER 650 MG TABLE* Take 1,300 mg by mouth as nee* Problem List As Of Date 03/01/2018 Noted Resolved DVT, recurrent, lower extremity, chronic [I82.5*INVALID FOR* More... Hyperlipidemia [E78.5] INVALID FOR* More... VENTRAL HERNIA NEC [K43.9] INVALID FOR*12/04/2014 Obesity, Class III, BMI 40-49.9 (morbid obesity*INVALID FOR* SYNCOPE AND COLLAPSE [R55] INVALID FOR*10/22/2006 More... BPH with obstruction/lower urinary tract sympto*INVALID FOR* Impotence of organic origin [N52.9] INVALID FOR*06/05/2014 Lumbago [M54.5] INVALID FOR*06/05/2014 Venous stasis dermatitis [I83.10] INVALID FOR* Pelvic hematoma in male [N50.1] INVALID FOR*06/05/2014 More... Actinic Keratoses (Premalignant AK's) [L57.0] INVALID FOR* Neoplasm of uncertain behavior of skin [D48.5] INVALID FOR*06/05/2014 Other seborrheic keratosis [L82.1] INVALID FOR* Solar Lentigines [L81.4] INVALID FOR*02/28/2016 Actinic skin damage [L57.8] INVALID FOR*02/28/2016 Xerosis cutis [L85.3] INVALID FOR*06/05/2014 Postinflammatory skin changes [R23.4] INVALID FOR*06/05/2014 Stucco keratosis [L85.1] INVALID FOR*02/28/2016 Iron deficiency anemia due to chronic blood los*INVALID FOR*09/02/2016 Pain in right hip [M25.551] INVALID FOR* Malignant neoplasm of colon (HCC) [C18.9] INVALID FOR*10/09/2015 Cancer of ascending colon (HCC) [C18.2] INVALID FOR* Metastatic cancer to intra-abdominal lymph node*INVALID FOR* Abdominal aortic aneurysm without rupture (HCC)*INVALID FOR* Other instructions from your clinician: You are due for Shingles vaccination. Call office to schedule if you decide to have this done You are also due for tetanus shot but this is not covered by your insurance. You will need to have one right away if you sustain any deep lacerations or puncture wounds. Prescriptions ordered this encounter Disp Refills Start End MOMETASONE 0.1 % TOPICAL OINTMENT 45 g 2 03/01/2018 Route: TOPICAL Sig: Apply 1 application to affected area once daily as needed. Medications Discontinued During This Encounter warfarin (COUMADIN) 2.5 mg tablet 300 * 3 06/18/2017 03/01/2018 Class: [facility] Sig: TAKE 3 TABLETS (7.5 MG) WEDNESDAY, WEDNESDAY, AND WEDNESDAY AND TAKE 4 TABLETS (10 MG) ALL OTHER DAYS OR DIRECTED Disc: Discontinued by another Health Care Provider mometasone (ELOCON) 0.1 % ointment 45 g 2 09/09/2017 03/01/2018 Class: [facility] Route: TOPICAL Sig: Apply 1 application to affected area once daily as needed. Disc: Reason for discontinue is not on file. Disposition: Return in about 6 months (around 09/01/2018) for routine follow-up. Follow-up and Disposition History Recorded Encounter Status:Closed by AIDEE YORK CNP on 03/01/18 PROTHROMBIN TIME Collected: 02/03/2018 Status: F Source: [facility] 9:02 AM SYSTEM REPOSITORY TYPE CODE TESTS RESULT OUT OF REFERENCE UNITS RANGE LAB PROTM 9.0-12.0 s Prothrombin Normal Time 10.7 Result Comment: . LAB INR 0.9-1.1 NA Normal INR 1.0 Result Comment: Recommended Anticoagulant Therapy: SEE BELOW ----- INR of 2.0 - 3.0 : - Prophylaxis of Venous Thrombosis (high-risk surgery) - Treatment of Venous Thrombosis - Treatment of Pulmonary Embolism (Includes tissue heart valves, Acute Myocardial Infarction to prevent systemic embolism, Valvular Heart Disease, and Atrial Fibrillation) ----- INR of 2.5 - 3.5 : - Mechanical Prosthetic Valves (high risk) - If oral anticoagulant therapy is used to prevent Myocardial Infarction Performed By: #### PT #### [facility] [address] [place] [phone] HEMOGRAM Collected: 01/10/2018 Status: F Source: [facility] 3:56 PM SYSTEM REPOSITORY TYPE CODE TESTS RESULT OUT OF RANGE REFERENCE UNITS LAB IWBC 3.6-10.7 10*3/uL WBC Normal 4.9 LAB RBC 4.40-5.90 10*6/uL Low RBC 4.21 LAB HGB 13.0-18.0 g/dL Normal Hemoglobin 14.3 LAB HCT 40.0-52.0 % Normal Hematocrit 42.4 LAB MCV 80.0-98.0 fL High MCV 100.6 LAB MCH 26.0-34.0 pg MCH Normal 33.9 LAB MCHC 32.0-36.0 % MCHC Normal 33.7 LAB RDW 11.5-14.5 % High RDW 15.5 LAB PLT 140-440 10*3/uL Platelet Normal 153 LAB MPV 7.4-10.4 fL MPV Normal 8.9 Performed By: #### HEMOG, BMP3 #### [facility] [address] [place] [phone] BASIC METABOLIC PANEL Collected: 01/10/2018 Status: F Source: [facility] 3:56 PM SYSTEM REPOSITORY TYPE CODE TESTS RESULT OUT OF RANGE REFERENCE UNITS LAB NA3 137-145 mmol/L Sodium Normal 144 LAB K3 3.5-5.1 mmol/L Normal Potassium 4.3 LAB CL3 98-107 mmol/L Chloride Normal 104 LAB CO23 22-30 mmol/L Carbon Normal Dioxide 28 LAB ANIN3 NA Anion Gap 12 LAB GLUC3 70-100 mg/dL Glucose Normal 92 LAB BUN3 7-20 mg/dL High Urea Nitrogen 21 LAB CRET3 0.52-1.25 mg/dL Normal Creatinine 0.92 LAB GF3BR >60 mL/min eGFR > 60.0 LAB GF3WR >60 mL/min eGFR OTHER > 60.0 Result Comment: Source- MDRD equation with creatinine calibration to IDMS(NKDEP) eGFR not recommended for drug dose adjustment LAB CA3 8.4-10.2 mg/dL Normal Calcium 9.0 Performed By: #### HEMOG, BMP3 #### [facility] [address] [place] [phone] PROGRESS Observed: 01/07/2018 Status: COMPLETED Source: [place] 11:[address] [facility] REPOSITORY HNO ID: [id number] Author: Oliver Bruner) Service: (none) Author Type: [employer]ge Shop Machine Repairer Type: Progress Notes Filed: 01/07/2018 11:25 AM Note Text: SOCIAL WORK Date of Service: January 07, 2018 Corine Black is a 77 year old male being seen for initial social work assessment. At this time, social work service is declined/deferred based on: he is not interested. PLAN: Follow up on an as needed basis JEREMY Day Observed: 01/07/2018 Status: COMPLETED Source: [place] 12:[address] [facility] REPOSITORY Social Work (ASHLEY) CORINE BLACK ([id number]) 1940 M Date Time Provider Department 01/07/18 OLIVER BRUNER (SW) During your visit today, we recorded the following information about you: Oliver Bruner (Sw) 01/07/2018 11:25 AM Signed SOCIAL WORK Date of Service: January 07, 2018 Corine Black is a 77 year old male being seen for initial social work assessment. At this time, social work service is declined/deferred based on: he is not interested. PLAN: Follow up on an as needed basis JEREMY Day Allergies As of Date: 01/07/2018 (No Known Allergies) Date Reviewed: 01/05/2018 Reviewed by: Imelda Tyler ([facility]) - Fully Assessed Reason for Visit: Social Work Services [507] Cmt: distress assessment decline Prescriptions as of 01/07/2018 Sig: ATORVASTATIN 20 MG TABLET TAKE 1 TABLET DAILY AT BEDTIM* MOMETASONE 0.1 % TOPICAL OINT* Apply 1 application to affect* HYDROCODONE 5 MG-ACETAMINOPHE* Take 1 tablet by mouth every * WARFARIN 2.5 MG TABLET TAKE 3 TABLETS (7.5 MG) MONDA* COMPOUNDED PRESCRIPTION KNEE HIGH COMPRESSION STOCKIN* NAPROXEN SODIUM 220 MG TABLET Take 220 mg by mouth as neede* ACETAMINOPHEN ER 650 MG TABLE* Take 1,300 mg by mouth as nee* Problem List As Of Date 01/07/2018 Noted Resolved DVT, recurrent, lower extremity, chronic [I82.5*INVALID FOR* More... Hyperlipidemia [E78.5] INVALID FOR* More... VENTRAL HERNIA NEC [K43.9] INVALID FOR*12/04/2014 Obesity, Class III, BMI 40-49.9 (morbid obesity*INVALID FOR* SYNCOPE AND COLLAPSE [R55] INVALID FOR*10/22/2006 More... BPH with obstruction/lower urinary tract sympto*INVALID FOR* Impotence of organic origin [N52.9] INVALID FOR*06/05/2014 Lumbago [M54.5] INVALID FOR*06/05/2014 Venous stasis dermatitis [I83.10] INVALID FOR* Pelvic hematoma in male [N50.1] INVALID FOR*06/05/2014 More... Actinic Keratoses (Premalignant AK's) [L57.0] INVALID FOR* Neoplasm of uncertain behavior of skin [D48.5] INVALID FOR*06/05/2014 Other seborrheic keratosis [L82.1] INVALID FOR* Solar Lentigines [L81.4] INVALID FOR*02/28/2016 Actinic skin damage [L57.8] INVALID FOR*02/28/2016 Xerosis cutis [L85.3] INVALID FOR*06/05/2014 Postinflammatory skin changes [R23.4] INVALID FOR*06/05/2014 Stucco keratosis [L85.1] INVALID FOR*02/28/2016 Iron deficiency anemia due to chronic blood los*INVALID FOR*09/02/2016 Pain in right hip [M25.551] INVALID FOR* Malignant neoplasm of colon (HCC) [C18.9] INVALID FOR*10/09/2015 Cancer of ascending colon (HCC) [C18.2] INVALID FOR* Metastatic cancer to intra-abdominal lymph node*INVALID FOR* Encounter Status:Closed by OLIVER BRUNER on 01/07/18 CNOVSP Observed: 01/05/2018 Status: COMPLETED Source: [place] 9:[address] [facility] REPOSITORY Visit (SP) Office (HEMAWS) CORINE BLACK ([id number]) 1940 M Date Time Provider Department 01/05/18 9:30 AM IMELDA TYLER (SPRAY MAKER) ASHLEY During your visit today, we recorded the following information about you: Temperature Pulse Blood pressure Weight 97.7 degrees 65/minute 145/70 129 kg Adriana Crane LPN 01/05/2018 9:39 AM Signed Est patient. Six month office visit. Discuss recent CT scan and labs. Imelda Julio LPN ([employer]) 01/06/2018 10:37 AM Signed Chief Complaint Patient presents with: Established Patient HPI: Corine Black is a 77 year old male who presents here today for follow up colon cancer. Per Dr. Tse's previous note: H/o aortic aneurysm?and recurrent DVT?who was found to have significant CLIFFORD. Received transfusion and underwent endoscopy. ?? Colonoscopy 07/24/2015: A fungating, infiltrative and ulcerated partially obstructing large mass was found in the ascending colon. The mass was partially circumferential (involving two-thirds of the lumen circumference). Biopsies were taken with a cold forceps for histology. Estimated blood loss was minimal. Area was tattooed with an injection of Katharine ink. A 20 mm polyp was found in the recto-sigmoid colon. The polyp was sessile. The polyp was removed with a saline injection-lift technique using a hot snare. Resection and retrieval were complete. Estimated blood loss was minimal. To close a defect after polypectomy, two hemostatic clips were successfully placed. There was no bleeding at the end of the procedure. Impression: - Malignant partially obstructing tumor in the ascending colon. Removal was not done. Biopsied. Tattooed. - One 20 mm polyp at the recto-sigmoid colon. Resected and retrieved. Clips were placed. ?? CT A/P--small liver lesions. ?? MRI--Benign liver lesions. ?? Underwent surgery 09/12/2015: Right colon, right hemicolectomy - Invasive moderately differentiated adenocarcinoma. See synoptic and comment. - Tumor invades into the pericolonic adipose tissue. - Perineural and lymphovascular space invasion noted, including extramural venous invasion. - Metastatic adenocarcinoma in two lymph nodes (2/37). - Separate minute tubular adenoma. - Unremarkable terminal ileum. - Fibrous obliteration of the appendiceal tip. - Negative surgical margins. DSA/plj 09/17/2015 COMMENT Focal dystrophic calcifications are noted within the tumor. SYNOPTIC REPORT OF [facility] PATHOLOG[facility] FINDINGS RIGHT HEMICOLECTOMY: COLON AND RECTUM:RESECTION, INCLUDING TRANSANAL DISK EXCISION OF RECTAL NEOPLASMS WORKSHEET: Specimen: Terminal ileum Cecum Appendix Ascending colon Procedure: Right hemicolectomy Primary Tumor Site: Right (ascending) colon Additional Sites Involved by Tumor: None identified Macroscopic Tumor Perforation: Not identified Macroscopic Intactness of Mesorectum: Not applicable: . Histologic Type: Adenocarcinoma Histologic Grade: Low-grade (well-differentiated to moderately differentiated) Histologic Features Suggestive of Microsatellite Instability: Intratumoral Lymphocytic Response (tumor-infiltrating lymphocytes)-None Peritumor Lymphocytic Response (Crohn-like response)-Mild to moderate Tumor Subtype and Differentiation-Tumor heterogeneity Tumor Size: Greatest dimension: 5.5 cm Microscopic Tumor Extension: Tumor invades through the muscularis propria into the subserosal adipose tissue or the nonperitonealized pericolic or perirectal soft tissues but does not extend to the serosal surface Distance of invasive carcinoma from closest margin: 3 cm Margin: Circumferential (Radial) Proximal Margin: Uninvolved by invasive carcinoma - No adenoma or intraepithelial neoplasia/dysplasia identified Distal Margin: Uninvolved by invasive carcinoma - No adenoma or intraepithelial neoplasia/dysplasia identified Circumferential Radial Margin: Uninvolved by invasive carcinoma Mesenteric Margin: Uninvolved by invasive carcinoma Deep Margin (Transanal Disk Excision): Not applicable: . Mucosal Margin(s) Transanal Disk Excision: Not applicable: . Treatment Effect: No prior treatment Lymph-Vascular Invasion: Present Extramural venous invasion: Yes Elastic stain performed: No Perineural Invasion: Present Tumor Deposits: Not identified Ancillary Studies: Microsatellite Instability-Addendum to follow TNM Descriptors: Not applicable: . Pathologic Staging (pTNM): pT3: Tumor invades through the muscularis propria into pericolorectal tissues Regional Lymph Nodes (pN): pN1b: Metastasis in 2 to 3 regional lymph nodes Number of nodes examined: 37 Number of nodes involved: 2 Distant Metastasis (pM): Not applicable: ?? Current therapy: 1) Adjuvant FOLFOX. First cycle 11/06/2015. Dose reduced 5-FU for cycle 2. Stopped after cycle #4 due to patient's reluctance to complete chemotherapy for financial reasons. ? Colonoscopy done on 07/16/16-Dr. Joe. Next due 06/2017. ? My knee is bad. Followed by Dr. Vieira-[facility]. He has had multiple injections. It's maybe helped a little. Colonoscopy done in October 2017-Dr. Davila. ? Appetite:good Energy level:As good as it can be Denies fevers or recent illness. Resp:denies cough or sob Cardiac:denies chest pain/palpitations GI:denies abd pain, n/v, moving bowels regularly :denies dysuria/hematuria Extrem:chronic R knee pain, back pain Neuro:denies symptoms of neuropathy Skin:denies rashes/lesions Heme:denies bleeding The ROS is otherwise negative. Past medical history, appointments, medications, allergies reviewed. No changes. EXAM: BP 145/70 Pulse 65 Temp 36.5 ?C (97.7 ?F) (Temporal Artery) Wt 129 kg (284 lb 8 oz) BMI 44.56 kg/m? APPEARANCE Well appearing, alert, in no acute distress, well- hydrated, well nourished. HEART RRR with normal S1 and S2, no murmurs LUNG clear to auscultation LYMPH NODES No cervical lymphadenopathy, No supraclavicular lymphadenopathy and No axillary lymphadenopathy. ABDOMEN obese, bowel sounds normoactive, no bruits, soft, non-tender, non-distended, without organomegaly or palpable masses EXTREMITIES No edema NEURO Awake, alert and oriented x 3, Normal gait and No involuntary motions. SKIN Skin color, texture, turgor normal, no suspicious rashes or lesions LABS: Component Latest Ref Rng AND Units 12/02/2016 07/01/2017 12/28/2017 CEA 0.0 - 2.9 ng/mL 2.2 2.1 2.2 RADIOLOGY: CT abd/pelvis 12/28/17: IMPRESSION: No developing suspicious mass or adenopathy within the abdomen or pelvis. Stable left internal iliac artery aneurysm. Increasing size of abdominal aortic aneurysm. ?An endoleak cannot be excluded. Findings discussed with Dr. Tse at 1635 ASSESSMENT/PLAN: 1. Cancer of ascending colon (HCC) - ICD9: 153.6, ICD10: C18.2 - No concerning findings on exam. - Reviewed labs with CT with pt. - Pt. has appt. with his aneurysm surgeon on Wednesday. - Follow up in 6 months with [facility]-pending his appt. on Wednesday. - Pt. aware to call office with any questions/concerns. The patient indicates understanding of these issues and agrees with the plan. Imelda Tyler APRN.[facility] Referring Provider: IMELDA TYLER ([facility]NELL) [[id number]] Allergies As of Date: 01/05/2018 (No Known Allergies) Date Reviewed: 01/05/2018 Reviewed by: Imelda Tylre ([facility]) - Fully Assessed Reason for Visit: Established Patient [175] Primary Visit Diagnosis:Cancer of ascending colon (HCC) [C18.2] Follow-up and Disposition History Recorded Prescriptions as of 01/05/2018 Sig: ATORVASTATIN 20 MG TABLET TAKE 1 TABLET DAILY AT BEDTIM* MOMETASONE 0.1 % TOPICAL OINT* Apply 1 application to affect* HYDROCODONE 5 MG-ACETAMINOPHE* Take 1 tablet by mouth every * WARFARIN 2.5 MG TABLET TAKE 3 TABLETS (7.5 MG) MONDA* COMPOUNDED PRESCRIPTION KNEE HIGH COMPRESSION STOCKIN* NAPROXEN SODIUM 220 MG TABLET Take 220 mg by mouth as neede* ACETAMINOPHEN ER 650 MG TABLE* Take 1,300 mg by mouth as nee* Problem List As Of Date 01/05/2018 Noted Resolved DVT, recurrent, lower extremity, chronic [I82.5*INVALID FOR* More... Hyperlipidemia [E78.5] INVALID FOR* More... VENTRAL HERNIA NEC [K43.9] INVALID FOR*12/04/2014 Obesity, Class III, BMI 40-49.9 (morbid obesity*INVALID FOR* SYNCOPE AND COLLAPSE [R55] INVALID FOR*10/22/2006 More... BPH with obstruction/lower urinary tract sympto*INVALID FOR* Impotence of organic origin [N52.9] INVALID FOR*06/05/2014 Lumbago [M54.5] INVALID FOR*06/05/2014 Venous stasis dermatitis [I83.10] INVALID FOR* Pelvic hematoma in male [N50.1] INVALID FOR*06/05/2014 More... Actinic Keratoses (Premalignant AK's) [L57.0] INVALID FOR* Neoplasm of uncertain behavior of skin [D48.5] INVALID FOR*06/05/2014 Other seborrheic keratosis [L82.1] INVALID FOR* Solar Lentigines [L81.4] INVALID FOR*02/28/2016 Actinic skin damage [L57.8] INVALID FOR*02/28/2016 Xerosis cutis [L85.3] INVALID FOR*06/05/2014 Postinflammatory skin changes [R23.4] INVALID FOR*06/05/2014 Stucco keratosis [L85.1] INVALID FOR*02/28/2016 Iron deficiency anemia due to chronic blood los*INVALID FOR*09/02/2016 Pain in right hip [M25.551] INVALID FOR* Malignant neoplasm of colon (HCC) [C18.9] INVALID FOR*10/09/2015 Cancer of ascending colon (HCC) [C18.2] INVALID FOR* Metastatic cancer to intra-abdominal lymph node*INVALID FOR* Visit Notes: >> Adriana Crane LPN January 05, 2018 9:22 AM Status: Signed Est patient. Six month office visit. Discuss recent CT scan and labs. Adriana Crane LPN Encounter Status:Closed by IMELDA TYLER CNP on 01/06/18 PROGRESS Observed: 01/05/2018 Status: COMPLETED Source: [place] 9:27 AM [facility] RE[facility] HNO ID: [id number] Author: Imelda Tyler ([employer]) Service: (none) Author Type: Nurse Practitioner Type: Progress Notes Filed: 01/06/2018 10:37 AM Note Text: Chief Complaint Patient presents with: Established Patient HPI: Corine Black is a 77 year old male who presents here today for follow up colon cancer. Per Dr. Tse's previous note: H/o aortic aneurysm?and recurrent DVT?who was found to have significant CLIFFORD. Received transfusion and underwent endoscopy. ?? Colonoscopy 07/24/2015: A fungating, infiltrative and ulcerated partially obstructing large mass was found in the ascending colon. The mass was partially circumferential (involving two-thirds of the lumen circumference). Biopsies were taken with a cold forceps for histology. Estimated blood loss was minimal. Area was tattooed with an injection of Katharine ink. A 20 mm polyp was found in the recto-sigmoid colon. The polyp was sessile. The polyp was removed with a saline injection-lift technique using a hot snare. Resection and retrieval were complete. Estimated blood loss was minimal. To close a defect after polypectomy, two hemostatic clips were successfully placed. There was no bleeding at the end of the procedure. Impression: - Malignant partially obstructing tumor in the ascending colon. Removal was not done. Biopsied. Tattooed. - One 20 mm polyp at the recto-sigmoid colon. Resected and retrieved. Clips were placed. ?? CT A/P--small liver lesions. ?? MRI--Benign liver lesions. ?? Underwent surgery 09/12/2015: Right colon, right hemicolectomy - Invasive moderately differentiated adenocarcinoma. See synoptic and comment. - Tumor invades into the pericolonic adipose tissue. - Perineural and lymphovascular space invasion noted, including extramural venous invasion. - Metastatic adenocarcinoma in two lymph nodes (2/37). - Separate minute tubular adenoma. - Unremarkable terminal ileum. - Fibrous obliteration of the appendiceal tip. - Negative surgical margins. DSA/plj 09/17/2015 COMMENT Focal dystrophic calcifications are noted within the tumor. SYNOPTIC REPORT OF [facility] RIGHT HEMICOLECTOMY: COLON AND RECTUM:RESECTION, INCLUDING TRANSANAL DISK EXCISION OF RECTAL NEOPLASMS WORKSHEET: Specimen: Terminal ileum Cecum Appendix Ascending colon Procedure: Right hemicolectomy Primary Tumor Site: Right (ascending) colon Additional Sites Involved by Tumor: None identified Macroscopic Tumor Perforation: Not identified Macroscopic Intactness of Mesorectum: Not applicable: . Histologic Type: Adenocarcinoma Histologic Grade: Low-grade (well-differentiated to moderately differentiated) Histologic Features Suggestive of Microsatellite Instability: Intratumoral Lymphocytic Response (tumor-infiltrating lymphocytes)-None Peritumor Lymphocytic Response (Crohn-like response)-Mild to moderate Tumor Subtype and Differentiation-Tumor heterogeneity Tumor Size: Greatest dimension: 5.5 cm Microscopic Tumor Extension: Tumor invades through the muscularis propria into the subserosal adipose tissue or the nonperitonealized pericolic or perirectal soft tissues but does not extend to the serosal surface Distance of invasive carcinoma from closest margin: 3 cm Margin: Circumferential (Radial) Proximal Margin: Uninvolved by invasive carcinoma - No adenoma or intraepithelial neoplasia/dysplasia identified Distal Margin: Uninvolved by invasive carcinoma - No adenoma or intraepithelial neoplasia/dysplasia identified Circumferential Radial Margin: Uninvolved by invasive carcinoma Mesenteric Margin: Uninvolved by invasive carcinoma Deep Margin (Transanal Disk Excision): Not applicable: . Mucosal Margin(s) Transanal Disk Excision: Not applicable: . Treatment Effect: No prior treatment Lymph-Vascular Invasion: Present Extramural venous invasion: Yes Elastic stain performed: No Perineural Invasion: Present Tumor Deposits: Not identified Ancillary Studies: Microsatellite Instability-Addendum to follow TNM Descriptors: Not applicable: . Pathologic Staging (pTNM): pT3: Tumor invades through the muscularis propria into pericolorectal tissues Regional Lymph Nodes (pN): pN1b: Metastasis in 2 to 3 regional lymph nodes Number of nodes examined: 37 Number of nodes involved: 2 Distant Metastasis (pM): Not applicable: ?? Current therapy: 1) Adjuvant FOLFOX. First cycle 11/06/2015. Dose reduced 5-FU for cycle 2. Stopped after cycle #4 due to patient's reluctance to complete chemotherapy for financial reasons. ? Colonoscopy done on 07/16/16-Dr. Joe. Next due 06/2017. ? My knee is bad. Followed by Dr. Vieira[facility]. He has had multiple injections. It's maybe helped a little. Colonoscopy done in October 2017-Dr. Davila. ? Appetite:good Energy level:As good as it can be Denies fevers or recent illness. Resp:denies cough or sob Cardiac:denies chest pain/palpitations GI:denies abd pain, n/v, moving bowels regularly :denies dysuria/hematuria Extrem:chronic R knee pain, back pain Neuro:denies symptoms of neuropathy Skin:denies rashes/lesions Heme:denies bleeding The ROS is otherwise negative. Past medical history, appointments, medications, allergies reviewed. No changes. EXAM: BP 145/70 Pulse 65 Temp 36.5 ?C (97.7 ?F) (Temporal Artery) Wt 129 kg (284 lb 8 oz) BMI 44.56 kg/m? APPEARANCE Well appearing, alert, in no acute distress, well-hydrated, well nourished. HEART RRR with normal S1 and S2, no murmurs LUNG clear to auscultation LYMPH NODES No cervical lymphadenopathy, No supraclavicular lymphadenopathy and No axillary lymphadenopathy. ABDOMEN obese, bowel sounds normoactive, no bruits, soft, non-tender, non-distended, without organomegaly or palpable masses EXTREMITIES No edema NEURO Awake, alert and oriented x 3, Normal gait and No involuntary motions. SKIN Skin color, texture, turgor normal, no suspicious rashes or lesions LABS: Component Latest Ref Rng AND Units 12/02/2016 07/01/2017 12/28/2017 CEA 0.0 - 2.9 ng/mL 2.2 2.1 2.2 RADIOLOGY: CT abd/pelvis 12/28/17: IMPRESSION: No developing suspicious mass or adenopathy within the abdomen or pelvis. Stable left internal iliac artery aneurysm. Increasing size of abdominal aortic aneurysm. ?An endoleak cannot be excluded. Findings discussed with Dr. Tse at 1635 ASSESSMENT/PLAN: 1. Cancer of ascending colon (HCC) - ICD9: 153.6, ICD10: C18.2 - No concerning findings on exam. - Reviewed labs with CT with pt. - Pt. has appt. with his aneurysm surgeon on Wednesday. - Follow up in 6 months with [facility]-pending his appt. on Wednesday. - Pt. aware to call office with any questions/concerns. The patient indicates understanding of these issues and agrees with the plan. Imelda Tyler APRN.[employer] PROGRESS Observed: 12/29/2017 Status: COMPLETED Source: [place] 2:[address] [facility] REPOSITORY HNO ID: [id number] Author: Sarmad Strickland Service: (none) Author Type: Physician Type: Progress Notes Filed: 12/29/2017 2:44 PM Note Text: Okay. PROGRESS Observed: 12/29/2017 Status: COMPLETED Source: [place] 11:[address] [facility] REPOSITORY HNO ID: [id number] Author: Nery Chance RN Service: (none) Author Type: (none) Type: Progress Notes Filed: 12/29/2017 11:38 AM Note Text: patient had inr completed at [facility] patients inr is 2.1 (patients inr range is 2.0-3.0) patient is currently taking 7.5mg Mon,Wed,Fri and 10mg all other days patients last dose change was on 04/15/16 due to a low normal reading of 2.0 (dose at that time was 10mg Mon,Wed,Fri and 7.5mg all other days) patient has had no changes in medication and no missed doses and no change in diet Advised patient to continue on the same dose(s) and that they would only be contacted regarding dosage and follow up instructions after review with provider, if a change is needed. Written instructions given and patient verbalized understanding. Presently scheduled in 4 weeks (pt will call to schedule appt) for follow up INR. PROGRESS Observed: 12/28/2017 Status: COMPLETED Source: [place] 9:[address] [facility] REPOSITORY HNO ID: [id number] Author: Sobeida Osborn Service: (none) Author Type: (none) Type: Progress Notes Filed: 12/28/2017 10:00 AM Note Text: Radiology Service Progress Note PATIENT NAME: Corine Black DATE OF SERVICE: December 28, 2017 TIME: 9:59 AM PATIENT IDENTITY VERIFICATION COMPLETED USING TWO (2) METHODS: Patient confirmed name verbally and Date of . PATIENT GENDER DATA: Male PATIENT RELEVANT IMPLANT DATA REVIEWED: Not Applicable CONTRAST INDUCED NEPHROPATHY RISK FACTORS: Patient age > 60 years CREATININE: Creatinine Date Value Ref Range Status 09/06/2017 1.13 0.73 - 1.22 mg/dL Final 08/28/2016 0.85 0.73 - 1.22 mg/dL Final 03/04/2016 0.99 0.70 - 1.40 mg/dL Final Creatinine, Whole Blood (iSTAT) Date Value Ref Range Status 07/01/2017 0.90 0.70 - 1.40 mg/dL Final 12/02/2016 0.90 0.70 - 1.40 mg/dL Final eGFR-All Other Races Date Value Ref Range Status 09/06/2017 >60 . Final Comment: eGFR (Estimated GFR) Units of measure: mL/min/1.73 meters squared eGFR is derived from the reexpressed MDRD Study equation using the following parameters: serum creatinine, age, gender and race. The creatinine assay has been calibrated to be traceable to IDMS. An eGFR <60 mL/min/1.73m2 for >3 months is consistent with chronic kidney disease. Refer to KDOQI guidelines for clinical interpretation. In patients with unstable renal function, e.g. those with acute kidney injury, the eGFR may not accurately reflect actual GFR. eGFR- Date Value Ref Range Status 09/06/2017 >60 Final P.O.C.T. RESULTS: POC done: Yes, See Lab Tab December 28, 2017 RADIOLOGIST NOTIFIED?: No ALLERGIES: Reviewed and unchanged CONTRAST ALLERGY: NO. PERIPHERAL IV ACCESS: Ambulatory: IV type: A peripheral IV was started in the Left antecubital site with a Angio cath: 20 gauge., Site assessment: Clean,Dry and Intact, Site disposition Discontinued RADIOLOGY DEPARTMENT: CT; Exam(s) Completed: Abdomen/Pelvis SIGNED BY: Sobeida Conley Ct December 28, 2017 9:[address] ABD/PEL W IVCON Observed: 12/28/2017 Status: F Source: [place] 9:[address] [facility] REPOSITORY * * *Final Report* * * DATE OF EXAM: Dec 28 2017 9:58AM [facility] 0530 - CT ABD/PEL W IVCON / PROCEDURE REASON: Malignant neoplasm of ascending colon * * * * Physician Interpretation * * * * HISTORY: Colon carcinoma TECHNIQUE: Contrast 1: [address] Contrast 2: 50 50ML Omnipaque [address] Ionizing Radiation: CT Dose Length Product (DLP): 1097 mG*y cm CT Dose Reduction Employed: Automated exposure control (AEC) RESULT: Scans through the abdomen and pelvis are performed following oral and intravenous contrast administration. Comparison is made with 07/01/17. Also compared to 06/23/2016. Minimal atelectasis or fibrosis at both lung bases appears stable. Stable subcentimeter low-density hepatic foci consistent with benign entity. Calcifications in the spleen are consistent with remote granulomatous disease. No developing focal hepatic or splenic abnormality. The adrenal glands and pancreas appear normal. Large left renal cyst is again noted of approximately 8 cm. Additional renal cysts. No solid renal mass or gross obstructive uropathy. No retroperitoneal lymphadenopathy or ascites is seen. Suture in the region of the ascending colon at site of anastomosis ,appears intact and unremarkable. Ventral hernia containing bowel without obstruction is seen. Inferior to this, smaller fat-containing hernia is seen. Both are stable. Patent aortic stent graft is noted. Fusiform dilatation of the lytton aorta is approximately 8 x 5.7 cm. This has increased over time. Anterior asymmetrical component of 3.9 cm was previously 2.3 cm. in 2016. Cannot exclude endograft leak. Scans through the pelvis show no evidence of lymphadenopathy or mass. No ascites. Collateral vessels are again noted within the anterior pelvic subcutaneous fat. 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 Left internal iliac artery aneurysm. Grossly stable. 2.6 x 2.1 cm. IMPRESSION: No developing suspicious mass or adenopathy within the abdomen or pelvis. Stable left internal iliac artery aneurysm. Increasing size of abdominal aortic aneurysm. An endoleak cannot be excluded. Findings discussed with Dr. Tse at 1635 It Security Manager: [facility] EDGEWOODHardeep Transcribe Date/Time: Dec 29 2017 4:15P Dictated by : MALLIKA MIDDLETON MD This examination was interpreted and the report reviewed and electronically signed by: MALLIKA MIDDLETON MD on Dec 29 2017 4:36PM EST [id number] KAIT CREATININE Collected: 12/28/2017 Status: F Source: [place] 8:[address] [facility] REPOSITORY TYPE CODE TESTS RESULT OUT OF REFERENCE UNITS RANGE LAB [place] 0.7-1.4 mg/dL [place] Creatinine 1.0 CEA Collected: 12/28/2017 Status: F Source: [place] 8:[address] [facility] REPOSITORY TYPE CODE TESTS RESULT OUT OF RANGE REFERENCE UNITS LAB CEA 0.0-2.9 ng/mL CEA 2.2 Result Comment: Test analyzed by the KarmasphereI method. Performed By: #### CEA #### [facility] [address] [place] [id number] PROGRESS Observed: 12/01/2017 Status: COMPLETED Source: [place] 1:[address] [facility] REPOSITORY HNO ID: [id number] Author: Sarmad Strickland Service: (none) Author Type: Physician Type: Progress Notes Filed: 12/01/2017 1:51 PM Note Text: Okay. PROGRESS Observed: 12/01/2017 Status: COMPLETED Source: [place] 8:[address] [facility] REPOSITORY HNO ID: [id number] Author: Nery Chance RN Service: (none) Author Type: (none) Type: Progress Notes Filed: 12/01/2017 8:04 AM Note Text: patient had inr completed at [facility] patients inr is 3.0 (patients inr range is 2.0-3.0) patient is currently taking 7.5mg Mon,Wed,Fri and 10mg all other days patients last dose change was on 04/15/16 due to a low normal level of 2.0 (dose at that time was 10mg Mon,Wed,Fri and 7.5mg all other days) patient has had no changes in medication and no missed doses and no change in diet FYI - patient did take some tylenol yesterday Advised patient to continue on the same dose(s) and that they would only be contacted regarding dosage and follow up instructions after review with provider, if a change is needed. Written instructions given and patient verbalized understanding. Presently scheduled in 2 weeks (12/15/17) for follow up INR since level is on the higher side of carmen. CNCO Observed: 11/30/2017 Status: COMPLETED Source: [place] 12:[address] [facility] REPOSITORY Letter Text [address] [facility] [place] [address] [phone] 11/30/2017 Corine Black [address] [place] [id number] Dear Mr. Black: Due to a change in the provider's schedule, it has been necessary to reschedule your appointment. Enclosed please find a new appointment reminder that will replace the one previously sent to you. If this appointment is not convenient for you, please contact our office at [phone]. Thank you for choosing the [facility] as your Healthcare Provider. Sincerely, Appointment Office OPERATIVE REPORT Observed: 11/04/2017 Status: F Source: [place] 6:54 AM [facility] REPOSITORY [facility] Medical Records Department [address] [place] [address] Operative Report 11/04/17 0647 MR#: [id number] Acct: [id number] Name: CORINE BLACK Rep #: [id number] : 1940 77 From: Ji Davila MD PCP: Sarmad Strickland MD Status: REG SDC Y Location: [place] [address] Problem List (1) Rectal bleed Status: Acute Report of Operation Date of Procedure: 11/04/17 Pre-Operative Diagnosis: Rectal bleeding Post-Operative Diagnosis: Patent ileocolonic anastomosis, moderate internal hemorrhoids, no active bleeding Surgery/Procedure Performed:: Colonoscopy Description of Surgical Findings:: Timeout and informed consent was obtained. 77-year-old gentleman was taken to the endoscopy suite. He was placed in left loud skin position. 75 mg Demerol and 2.5 g of Versed were given as intravenous sedation. Digital rectal exam performed. Tight anal tone. No significant external hemorrhoidal disease very minimal. Some mild internal hemorrhoidal disease. The patient is morbidly obese I could not digitally palpate the prostate. No active bleeding noted. Flexible colonoscope inserted the rectum advanced quite readily through the colon. The ileocolonic anastomosis from a previous right colectomy was readily achieved. Bowel prep was actually quite good. The scope was carefully withdrawn from the transverse descending sigmoid colon. Scope was retroflexed within the rectum. The anorectal verge inspected. Internal hemorrhoidal changes noted but not exuberant. No active bleeding. Excess fluid and air was aspirated free the procedure was completed with the patient tolerating it well. Impression Patent ileocolonic anastomosis. Moderate internal hemorrhoids No active bleeding The patient will be reinitiated on his Coumadin. I would recommend at this point fibrous augmentation and conservative observation. The patient's age medical comorbidities and body habitus places him at increased operative risk. If his symptoms resolve then I would not recommend any type of operative intervention. If his symptoms persist then consideration for internal surgical adenoidectomy could be considered. Previous colonoscopy was July 16, 2016 Colonoscopy recommended in 3 years Medications were given at 0626. Scope entered 0629. Cecum was reached at 0633.18. The scope was completed 0639.17. Cc: Dr. Strickland and Dr. Félix Davila M.D., F.A.C.S. Type of Anesthesia:: IV Sedation 11/04/17 0654 <Electronically signed by Ji Davila MD> Date Ji Davila MD CC: Félix Tse DO; Ji Davila MD; Sarmad Strickland MD Signed PROGRESS Observed: 11/03/2017 Status: COMPLETED Source: [place] 12:[address] [facility] REPOSITORY HNO ID: [id number] Author: Sarmad Strickland Service: (none) Author Type: Physician Type: Progress Notes Filed: 11/03/2017 12:29 PM Note Text: Noted. PROGRESS Observed: 11/03/2017 Status: COMPLETED Source: [place] 8:[address] [facility] REPOSITORY HNO ID: [id number] Author: Nery Chance RN Service: (none) Author Type: (none) Type: Progress Notes Filed: 11/03/2017 8:30 AM Note Text: patient had inr completed at [facility] patients inr is 1.1 (patients inr range is 2.0-3.0) patient is currently holding coumadin dose of 7.5mg Mon,Wed,Fri and 10mg all other days due to c-scope tomorrow patients last dose change was on 04/15/16 due to a low normal level of 2.0 (dose at that time was 10mg mon,wed,fri and 7.5mg all other days) patient has had no changes in medication and no change in diet patient has been instructed to resume coumadin dosing after c-scope. patient would not reschedule to have inr check in 1 or 2 weeks after restarting but agreed to scheduled for a 1 month check and has been scheduled for an inr follow upon 12/01/17. SURGERY VISIT REPORT Observed: 11/02/2017 Status: F Source: [place] 5:02 PM [facility] REPOSITORY [facility] [address] [place] [address] OFFICE VISIT Date of Service: 11/02/17 MR#: [id number] Acct: [id number] Name: CORINE BLACK Rep #: [id number] : 1940 Provider: Ji Davila MD Age/Sex: 77/M Location: [facility] Status: Signed Intake Vital Signs11/02/17 Height 5 ft 9 in 11/02/17 Weight: 276 lb Intake Visit Reasons: RECTAL BLEEDING Allergies No Known Allergies Allergy (Verified 06/03/15 08:15) Medications Acetaminophen [Tylenol Arthritis] 650 mg PO BID 06/03/15 [History Confirmed 11/02/17] Warfarin [Coumadin (PBKC)] 7.5 mg PO DAILY 06/03/15 [History Confirmed 11/02/17] Warfarin [Coumadin ([facility]KC)] 10 mg PO MCCLURE 06/03/15 [History Confirmed 11/02/17] atorvastatin 20 mg tablet 20 mg PO QDAY 11/02/17 [History Confirmed 11/02/17] naproxen sodium 220 mg capsule 220 mg PO Q12H 11/02/17 [History Confirmed 11/02/17] PFSH Medical History History of colon cancer (Acute) Snoring (Acute) Iron deficiency anemia (Acute) GERD (gastroesophageal reflux disease) (Acute) CAD (coronary artery disease) (Acute) Arrhythmia (Acute) Pelvic hematoma (Acute) DVT (deep venous thrombosis) (Acute) Ventral hernia (Acute) Syncope and collapse (Acute) Obesity (Acute) Hyperlipemia (Acute) Cardiomegaly (Acute) Surgical History S/P colonoscopy (Acute) History of esophagogastroduodenoscopy (EGD) (Acute) S/P repair of ventral hernia (Acute) Status post aortic coarctation stent placement (Acute) Status post amputation (Acute) Social History Smoking Status: Never smoker second hand exposure: No alcohol intake: never substance use type: does not use caffeine: Yes what type of physical activity do you participate in: none frequency: does not exercise seatbelt use: always HPI HPI HPI: CORINE BLACK, is a 77 M who presents to the office today for surgical consultation regarding bright red rectal bleeding. Patient is a 77-year-old gentleman. Last week he developed bright red rectal bleeding with dripping into the commode. He has had a past history of hemorrhoids but these have never been treated medically. He has utilized arsb-esb-ztejoph agents. More pertinently he has had a previous history of ascending colon cancer. As of July 02, 2017 CEA level was 2.1. As of July 16, 2016 colonoscopy at that time demonstrated a normal appearance of the colon with a patent ileocolonic anastomosis. As of September 06, 2017 INR at that time was 2.5. Liver function tests same date were normal. Renal function normal. And as of September 06, 2017 hemoglobin is 15.2 and hematocrit 47.1 with a platelet count of 178,000. The patient's colon cancer was invasive moderately differentiated adenocarcinoma invading into the pericolonic fat. Perineural and lymphovascular space invasion was noted with extramural venous invasion. Metastatic adenocarcinoma in 2 out of 37 lymph nodes. In addition at the time of colonoscopy July 24, 2015 there was a 20 mm polyp found at the rectosigmoid junction. That polyp was sessile. 2 hemostatic clips had to be placed at that time. The patient is cared for by hematology oncology Dr. Félix Tse locally. Patient stopped his Coumadin 4 days ago. He is still had some rectal bleeding. Initially it was dripping in the commode then subsequent to that around the stool and then subsequent that on the tissue paper. He denies any pain. He states that his is having a colonoscopy tomorrow. ROS General General: Yes colon cancer; no weight change, appetite, fatigue, breast cancer or weakness HEENT HEENT: No difficulty swallowing, eye injury, eye surgery, swollen glands or hoarseness Endo Endocrine: No thyroid disease, diabetes mellitus, thyroid cancer, Hair loss, heat intolerance or cold intolerance Skin Skin: No rash or changing moles Musc Musculoskeletal: No back problems, arthritis, rheumatoid arthritis, gout or joint pain Cardio Cardiovascular: No murmur, pacemaker, heart disease, atrial fibrillation, high blood pressure, heart attack, heart stent, palpitations, shortness of breat with exertion or chest pain Psych Psychiatric: No depression, anxiety or hearing voices Resp Respiratory: No shortness of breath, No sleep apnea, No cough, No COPD, No asthma, No emphysema, No wheezing Gastro Gastrointestinal: No abdominal pain, No nausea or vomiting, No diarrhea, No constipation, Yes blood in stool, No acid reflux, No hemorrhoids, No ulcers, No gallbladder problem, No black,tarry stools Solitario Hematologic: Yes blood thinners, No blood disorders, No bleeding, No anemia, Yes blood clots Neuro Neurologic: No system reviewed and no additional complaints, except as docu, No as per HPI, No abnormal walking, No abnormal hearing, No abnormal movements, No abnormal speech, No behavioral changes, No burning sensations, No confusion, No seizure-like activity, No unsteadiness, No dizziness, No localized weakness, No frequent falls, No headache(s), No lack of coordination, No loss of vision, No memory loss, No numbness, No other visual disturbances, No radiating pain, No restless legs, No sensory deficit, No fainting, No tingling, No tremor(s), No weakness, No other Exam Const General: cooperative, healthy appearing Nutritional Appearance: obese Eyes General: appearance normal, both eyes and all related structures Neck Neck: normal visual inspection Chest Chest palpation AND inspection: normal inspection of the chest Resp Effort AND Inspection: normal respiratory effort Auscultation: clear to auscultation bilaterally Other: Occasional intermittent cough Cardio Rate: regular rate Rhythm: regular rhythm Heart Sounds: no murmurs GI Other: Markedly overweight. Long midline incision extending from the xiphoid to below the umbilicus. Fascial weakness superior to the umbilicus consistent with hernia. Velcro back brace in place. Other: Urinary incontinence noted Skin Other: Hyperpigmentation particularly of the right lower extremity consistent with chronic venous stasis changes Neuro Other: Patient appears to be alert and aware of his situation and place Extrem Other: Significant chronic venous stasis changes of the right lower extremity with nonpitting edema Psych Affect: normal affect Assessment AND Plan Problems 1. History of colon cancer Z85.038 2. Rectal bleeding K62.5 Plan 77-year-old gentleman with rectal bleeding. He is holding his Coumadin utilized for chronic deep venous thrombosis. He is morbidly obese. As long midline incision related to previous open right colectomy for colon cancer. His most recent colonoscopy June 2016 was not remarkable but he has active rectal bleeding. I am recommending a colonoscopy with possible biopsy or polypectomy is indicated. I discussed the technique, benefits, risks, alternatives. It is of some note that there was difficulty in the patient being willing to receive bowel prep instructions from our scheduling team. We will try to expedite his colonoscopy and we have scheduled it for 2 days from now. He has been given strict dietary instructions. We requested an INR today but will he will have it drawn at the [facility] tomorrow. He has been given strict bowel prep instructions and dietary instructions. I anticipate being able to proceed with IV sedation. He has had an opportunity to ask and have questions answered. We will proceed and try to expedite his care. Cc: Dr. Strickland and Dr. Félix Davila M.D., F.A.C.S. Coding Level of Care Code Off vis,new,level 3 Diagnoses History of colon cancer Z85.038 Rectal bleeding K62.5 11/02/17 1702 <Electronically signed by Ji Davila MD> Date Ji Davila MD Cosigner Signature: Date (if applicable) CC: Félix Tse DO; Sarmad Strickland MD ALLERGIES ALLERGIES DATE TYPE / CODE NAME / CODE REACTION SEVERITY SOURCE 11/03/2017 Drug No Known Unknown [facility] Allergy/416 Allergies/U25203 [facility] 459559(SNOM 0388(RXNORM) Repository ED CT) Drug NO KNOWN [facility] Class/67586 ALLERGIES [facility] 1003(SNOMED Repository CT) ENCOUNTERS ENCOUNTERS ADMIT/DISCHARGE ACCOUNT NUMBER ADMITTING ENCOUNTER LOCATION SOURCE CLASS 09/07/2018 [id number] Ambulatory [facility] Repository 09/07/2018 [id number] Ambulatory [facility] Repository 08/29/2018/08/29/20 [id number] Ambulatory [address] [place] Repository 08/26/2018 [id number] Ambulatory [address] [place] [address] [id number]: 1A System [id number]: Repository [id number] 08/12/2018 [id number] Ambulatory [facility] ding:LAB Repository 07/27/2018/07/27/20 [id number] Ambulatory [address] [place] Repository 07/27/2018/07/27/20 [id number] Ambulatory [address] [place] Repository 07/27/2018/07/27/20 [id number] Ambulatory [address] [place] Repository 07/12/2018/07/14/20 [id number] Ambulatory [address] [place] Repository 07/12/2018/07/12/20 [id number] Ambulatory [address] Repository 06/23/2018/06/23/20 [id number] Ambulatory BMSBuilding: [place] [facility] Repository 06/07/2018 [id number] Ambulatory [facility] ding:MRI Repository 05/19/2018 [id number] Ambulatory [facility] ding:HPRAD Repository 05/19/2018/05/19/20 [id number] Ambulatory BMSBuilding: [place] [facility] Repository 03/01/2018/03/03/20 [id number] Ambulatory [address] Repository 02/03/2018 [id number] Ambulatory Buildin[facility] [id number]: System [id number]: Repository [id number] 01/27/2018 [id number] Ambulatory [facility] Repository 01/10/2018 [id number] Ambulatory [facility] Repository 01/05/2018/01/07/20 [id number] Ambulatory [address] [place] Repository 12/29/2017/12/31/19 [id number] Ambulatory [address] [place] Repository 12/28/2017/12/31/19 [id number] Ambulatory [address] [place] Repository 12/28/2017/12/29/19 [id number] Ambulatory [address] [place] Repository 12/28/2017/12/29/19 [id number] Ambulatory [address] [place] Repository 12/01/2017/12/03/19 [id number] Ambulatory [address] Repository 11/04/2017/11/05/19 [id number] Ambulatory [place] [address] [place] [address] ding:EN Repository 11/04/2017 [id number] Ambulatory BMSBuilding: [place] BMS.CF.[facility] Repository 11/03/2017/11/05/19 [id number] Ambulatory [address] Repository 11/02/2017/11/03/19 [id number] Ambulatory BMSBuilding: [place] 18 BMS.[facility] Repository PAYERS PAYERS ENCOUNTER GUARANTOR PAYER SUBSCRIBER SOURCE 09/07/2018 Corine E Primary [facility]ine E [facility] GreggDOB: Insurance:[employer] GreggDOB: System [employer] [id number] Repository [facility] Number: Lang Effective Date: , [place] [address]Ppq: () 09/07/2018 Corine E Primary Corine E [facility] GreggDOB: Insurance:[place] [employer] GreggDOB: System [employer] [id number] Repository [facility] Number: Lang Effective Date: , [place] [address]Hrr: () 08/26/2018 Corine E Primary Insurance:The Corine E [facility] GreggDOB: Health PlanPolicy GreggDOB: System Number: Effective [id number] [facility] Date: [place], [place] [address]Xvh: () 08/12/2018 CORINE E Primary CORINE E [place] [id number] [facility] Insurance:[place] GREGGDOB: [facility] [id number] , [place] [address]Yvy: MEDICAREPolicy Repository Number: () [id number] Date: TANVI PUENTE [address]WN: 08/12/2018 Secondary NOT GIVENUNK [place] Insurance:SELF PAY [facility] Number: Effective Repository Date:2018-08-12 06/23/2018 CORINE E Primary CORINE E [place] [id number] [place] Insurance:[place] MENDEZGDOB: [address] , [place] [address]Col: MEDICAREPolicy Repository Number: () [id number] Date: [place], [place] [address]LI: 06/23/2018 Secondary NOT GIVENUNK [place] Insurance:SELF PAY [facility] Number: Effective Repository Date:2018-06-23 06/07/2018 CORINE E Primary CORINE E [place] [id number] [place] Insurance:HOMETO MENDEZOB: [address] , [place] [address]Vez: MEDICAREPolicy Repository Number: () [id number] Date: [place], [place] [address]RA: 06/07/2018 Secondary NOT GIVENUNK [place] Insurance:SELF PAY [facility] Number: Effective Repository Date:2018-06-02 05/19/2018 CORINE E Primary CORINE E [place] [id number] [place] Insurance[facility] [address] , [place] [address]Zxh: MEDICAREPolicy Repository Number: (HP) [id number] Date: [place], [place] [address]UB: 05/19/2018 Secondary NOT GIVENUNK [place] Insurance:SELF PAY [facility] Number: Effective Repository Date:2018-05-19 05/19/2018 CORINE E Primary CORIEN E [place] [id number] [place] Insurance:RENFREW MENDEZOB: [address] , [place] [address]Dzv: MEDICAREPolicy Repository Number: (HP) [id number] Date: [place], [place] [address]QP: 05/19/2018 Secondary NOT GIVENUNK [place] Insurance:SELF PAY [facility] Number: Effective Repository Date:2018-05-19 02/03/2018 Corine E Primary Insurance:[facility] EncovergDOB: Health PlanPolicy PitchEnginegDOB: System Number: Effective [id number] Repository Kar Date: [place], [place] [address]Tel: () 01/27/2018 Corine E Primary Insurance:The Corine [employer] [facility] EncoverOB: Health PlanPolSoliant Energyy PitchEnginegDOB: System Number: Effective [id number] Repository Kar Date: [place], [place] [address]Tel: () 01/10/2018 Corine E Primary Insurance:The Corine [employer] [facility] [employer] [facility]: Health PlanPolSoliant Energyy PitchEnginegDOB: System Number: Effective [id number] Repository Kar Date: [place], [place] [address]Tel: () 11/04/2017 CORINE E Primary CORINE E [place] [id number] KAR Insurance:[facility]: [place] [id number], [place] [address]Aij: MEDICAREPolicy Repository Number: () [id number] Date: [place], [place] [address]VB: 11/04/2017 Secondary NOT GIVENUNK [place] Insurance:SELF PAY [facility] Number: Effective Repository Date:2017-11-03 11/04/2017 CORINE E Primary CORINE E [place] [id number] KAR Insurance:[facility]ENTEROB: [facility] [id number], [place] [address]Ddc: MEDICAREPolicy Repository Number: () [id number] Date: [facility] [place]VI [place] [address]QO: 11/04/2017 Secondary NOT GIVENUNK [place] Insurance:SELF PAY [facility] Number: Effective Repository Date:2017-11-04 11/02/2017 CORINE [id number] Primary CORINE LEIGHOB: [place] KARKATHY [facility] [id number], [place] [address]Qdd: MEDICAREPolicy Repository Number: () [id number] Date: [facility] Solo [place] [address]TT: 11/02/2017 Secondary NOT GIVENUNK [place] Insurance:SELF PAY [facility] Number: Effective Repository Date:2017-10-29
== END ==
PROVIDERS: Family Provider Internal Medicine; PCP Internal Medicine
DX: T82.330D Leakage of aortic (bifurcation) graft (replacement), subsequent encounter (principal)
CPT/HCPCS: 36415; 80048; 85027

== ENCOUNTER 2020-06-10 13:27 | Emergency (ER) | payer MEDICARE, SELFPAY ==
[2020-06-10] VITALS (7 sets, daily range): BP systolic 123–152; BP diastolic 76–86; PULSE 70–79; RESP 18–22; TEMP 35.8; O2SAT 90–98; BMI 38.7; BMI 41.0
--- NOTE | 2020-06-10 13:20 | CT_ITS ---
STUDY: CT BRAIN WITHOUT CONTRAST REASON FOR EXAM: Male, 79 years old. STROKE RADIATION DOSAGE (If Supplied By Facility): CTDIvol = ( 44.99 ) mGy, DLP = ( 897.35 ) mGycm TECHNIQUE: Transaxial CT imaging of the brain was performed without administration of intravenous contrast material. Individualized dose optimization techniques were used for this CT. COMPARISON: No relevant priors. FINDINGS: Normal soft tissue structures. Normal calvarium. There is mild cerebral atrophy with widening of the extra-axial spaces and ventricular dilatation. There are areas of decreased attenuation within the white matter tracts of the supratentorial brain, consistent with microvascular disease changes. Normal basal ganglia and thalami. Normal brainstem. Normal cerebellum. There is no intracranial hemorrhage. There are no findings of an acute ischemic atherosclerotic calcification of the cavernous portions of the internal carotid arteries bilaterally. Infarction. Normal visualized paranasal sinuses. CT/Brain/Head without Contrast IMPRESSION: Chronic involutional changes of the brain. Electronically Signed: Palomo Ann, at 13:48 EDT , Service support ,
--- NOTE | 2020-06-10 13:24 | CT_ITS ---
STUDY: CTA HEAD AND NECK WITH CONTRAST REASON FOR EXAM: Male, 79 years old. STROKE RADIATION DOSAGE (If Supplied By Facility): CTDIvol = ( 19.36 ) mGy, DLP = ( 980.59 ) mGycm TECHNIQUE: CT angiography was performed with a multi-detector CT scanner. Data acquisition was obtained from the skull base through the vertex following intravenous administration of IV 100mL Isovue-370. MIP images were reconstructed from the axial data set. Post-processing of the angiographic images was performed, with multiplanar reformation and 3D reconstruction. Limited study due to poor contrast enhancement. Individualized dose optimization techniques were used for this CT. COMPARISON: No relevant priors. FINDINGS: Normal bilateral petrous carotid arteries. Normal right cavernous carotid artery with a normal supraclinoid bifurcation. Normal left cavernous carotid artery with a normal supraclinoid bifurcation. There is hypoplastic development of the right A1 segment of the anterior cerebral arteries with an atretic but intact artery. There is hypoplastic development of the left A1 segment of the anterior cerebral arteries with an atretic but intact artery. Normal intact anterior communicating artery (ACOM). Normal bilateral A2 segments of the anterior cerebral arteries. Normal right M1 and M2 segments of the middle cerebral arteries, with a normal M1 bifurcation. There is occlusion of the left M1 and M2 segments. Normal right posterior communicating artery (PCOM). Normal left posterior communicating artery (PCOM). Normal bilateral vertebral arteries. Normal basilar artery with a normal basilar bifurcation. The visualized bilateral superior cerebellar (SCA) arteries are normal. Normal bilateral P1, P2 and visualized P3 segments of the posterior cerebral arteries. There is no demonstrated aneurysm of the [place]. AORTIC ARCH: There is atherosclerotic calcific plaque formation of the aortic arch and great vessels arising from the aortic arch, without a hemodynamically significant stenosis. There is a bovine origin of the great vessels with a common origin of the brachiocephalic and left common carotid artery. Normal origin of the left subclavian artery. RIGHT CAROTID ARTERIES: Normal right common carotid artery (CCA). Normal right common carotid bulb. There is extensive atherosclerotic plaque formation of the origin of the right internal carotid artery with an estimated stenosis of greater than 70%. Normal visualized cervical portion of the right internal carotid artery. Normal origin of the right external carotid artery (ECA). LEFT CAROTID ARTERIES: Normal left common carotid artery (CCA). Normal left common carotid bulb. There is extensive atherosclerotic plaque formation of the origin of the left internal carotid artery with an estimated stenosis of greater than 70%. Normal visualized cervical portion of the left internal carotid artery. Normal origin of the left external carotid artery (ECA). VERTEBRAL ARTERIES: Not well opacified. CT/CTA Head AND Neck W/ Contrast IMPRESSION: Limited examination as described. Dense calcific plaques at the origins of both left and right internal carotid arteries with bilateral high-grade stenosis. Nonvisualization of the left M1 and M2 segments of the left middle cerebral artery. Electronically Signed: Palomo Ann, at 13:56 EDT , Service support ,
--- NOTE | 2020-06-10 13:31 | EKG12_ITS ---
Test Reason : STROKE Blood Pressure : / mmHG Vent. Rate : 079 BPM Atrial Rate : 086 BPM P-R Int : 000 ms QRS Dur : 098 ms QT Int : 438 ms P-R-T Axes : 000 053 043 degrees QTc Int : 502 ms Atrial fibrillation Incomplete right bundle branch block Prolonged QT Abnormal ECG Confirmed by LI MUELLER, TITA ([id number]), news videotape editor YOLANDA GUIDRY ([id number]) on 06/17/2020 8:38:46 A M Referred By: NIYA/BART Confirmed By:JACY JEFFERSON MD
--- NOTE | 2020-06-10 13:31 | CM.ED ---
Social Work Responding to Stroke Alert. No family present. Patient spouse, Jodie noted on chart. Telephone call to Jodie, Jodie reports to be waiting on son to come with Jodie to the hospital. Jodie states to have own medical problems. Jodie states to use a walker. Jodie reports that patient is a full-code. Jodie updated that plan is for patient to be transferred. Jodie requesting for patient to be transferred to [facility]. This social sciences department chair facilitating conversation with nursing staff and Jodie. Will continue to follow. Mateo IBANEZ, LORRIE
[2020-06-10 13:47] LABS: Absolute Lymphocyte Count 0.41 X10^3/uL (0.83-4.51); Absolute Neutrophil Count 3.4 X10^3/uL (2.0-7.7); Basophil# 0.02 X10^3/uL; Basophil% 0.4 % (0-1); Eosinophil# 0.21 X10^3/uL; Eosinophils% 4.6 % (0-5); Hematocrit 36.5 % (40-54); Hemoglobin 11.3 g/dL (13.0-16.5); Lymphocyte # 0.41 X10^3/ul (4.0); Lymphocyte % 8.9 % (19-41); Mean Corpuscular Hgb 32.7 pg (27.0-32.0); Mean Corpuscular Volume 105.5 fL (80-94); Mean Platelet Vol. 9.9 fl (6.2-12.0); Monocyte# 0.58 X10^3/uL; Monocyte% 12.6 % (0-10); NRBC Flagged by Analyzer 0 % (0-5); Neutrophil # 3.37 X10^3/uL (2.7-7.7); Neutrophil % 73.3 % (47-70); POSITIVE DIFFERENTIAL YES; Platelet Count 152 K/mm3 (150-450); RBC Distribution Width CV 14.7 % (11.6-14.6); RBC Distribution Width SD 57.5 fl (35.1-43.9); Red Blood Count 3.46 M/mm3 (4.6-6.2); White Blood Count 4.6 K/mm3 (4.4-11.0)
[2020-06-10 13:48] LABS: Differential Indicated SCAN CRITERIA MET
[2020-06-10 13:53] LABS: International Normalized Ratio 1.1
[2020-06-10 13:54] LABS: Partial Thromboplast Time 25.6 Seconds (24.1-36.2)
[2020-06-10 14:02] LABS: Anion Gap 3 (5-15); BUN 25 mg/dL (7-18); BUN/Creat Ratio 20.5 RATIO (10-20); Calcium,Total 8.2 mg/dL (8.5-10.1); Chloride 107 mmol/L (98-107); Creatinine, Serum 1.22 mg/dL (0.70-1.30); EST Glomerular Filtration Rate 61 mL/min (>60); Est Glom Filt Rate - Afr Amer 73 mL/min (>60); Estimated Creatinine Clearance 53.01 ml/min; Glucose 108 mg/dL (74-106); Potassium 4.3 mmol/L (3.5-5.1); Sodium Level 140 mmol/L (136-145)
[2020-06-10 14:06] LABS: Platelet Estimate ADEQUATE (ADEQ); Red Cell Morphology NORM C+C NORMAL (NORM C&C)
--- NOTE | 2020-06-10 14:07 | ED.VIS.STROK ---
History of Present Illness Chief Complaint: Neuro S/Sx Informant: Fast Food Assistant Restaurant Manager Onset: Today Timing: Continuous Quality and Location: Right Facial Droop, Right Arm Weakness, Right Leg Weakness, Slurred Speech, Expressive Aphasia, Receptive Aphasia Onset: 3hours Narrative: 79-year-old male with past medical history of hypertension and atrial fibrillation presents with concern for right-sided hemiparesis. Last known well 3 hours. Patient also has significant a aphasia as well as ish-inattention. Difficult to obtain history of present illness given the patient's current symptoms. Past Medical History - Allergies and Home Meds Allergies/Adverse Reactions: Allergies No Known Allergies Allergy (Verified 11/03/17 10:03) Primary Care Physician: Sarmad Braun MD [Primary Care Provider] - Prior records reviewed: Yes Past Medical History: - - HTN, Atrial fibrillation, CAD Lives: Spouse/ Significant Other Smoking Status: Never smoker Alcohol: None Drugs: None Review of Systems ROS: Unable to Obtain STROKE Vital Signs/Narrative: Vital Signs Temp Pulse Resp BP Pulse Ox 06/10/20 13:50 96.5 F L 76 22 H 138/84 H 92 06/10/20 13:45 70 22 H 143/86 H 90 06/10/20 13:31 96.5 F L 79 22 H 139/79 H 92 Inital Vital Signs reviewed: Yes General: Well nourished, Well developed Head: Normocephalic, Atraumatic Eyes: Perrl, EOMI ENT: Moist mucous membranes, No rhinorrhea Neck: Supple, Nontender Cardiovascular: Regular rate, Regular rhythm, No murmurs Respiratory: No distress, CTA bilaterally, Chest nontender Abdomen: Soft, Nontender, Nondistended, Normal bowel sounds Back: Nontender, Normal Inspection Extremities: Nontender, No edema Skin: Normal color, No rash Neurological: Alert, - - Right sided facial droop. Right-sided hemineglect. Right-sided hemiparesis. NIH 23. Psychological: Normal affect Diagnostic/Tx/Re-eval Clinical Impression(s) from Imaging Studies Brain CT 06/10/20 13:20 IMPRESSION: Chronic involutional changes of the brain. Electronically Signed: Palomo Ann, at 13:48 EDT , Service support , Head/Neck CTA 06/10/20 13:24 IMPRESSION: Limited examination as described. Dense calcific plaques at the origins of both left and right internal carotid arteries with bilateral high-grade stenosis. Nonvisualization of the left M1 and M2 segments of the left middle cerebral artery. Electronically Signed: Palomo Ann, at 13:56 EDT , Service support , Laboratory Data 06/10/20 06/10/20 06/10/20 13:35 13:35 13:35 WBC 4.6 RBC 3.46 L Hgb 11.3 L Hct 36.5 L MCV 105.5 H MCH 32.7 H MCHC 31.0 L RDW Std Deviation 57.5 H RDW Coeff of Dorian 14.7 H Plt Count 152 MPV 9.9 Immature Gran % (Auto) 0.200 Neut % (Auto) 73.3 H Lymph % (Auto) 8.9 L Conway % (Auto) 12.6 H Eos % (Auto) 4.6 Baso % (Auto) 0.4 Absolute Neuts (auto) 3.4 Absolute Lymphs (auto) 0.41 L Nucleated RBC % 0 Differential Comment Platelet Estimate ADEQUATE RBC Morphology NORM C+C PT 14.0 INR 1.1 APTT 25.6 Sodium 140 Potassium 4.3 Chloride 107 Carbon Dioxide 30.0 Anion Gap 3 L BUN 25 H Creatinine 1.22 Estim Creat Clear Calc 53.01 Est GFR (MDRD) Af Amer 73 Est GFR (MDRD) Non-Af 61 BUN/Creatinine Ratio 20.5 H Glucose 108 H Calcium 8.2 L Troponin I < 0.015 - Rhythm Strip Rhythm Strip: A-fib Rate: 79 Ectopy: None - EKG Initial EKG Interpretation: Atrial Fibrillation - Atrial fibrillation and 79 bpm. QTC within normal limits. No evidence of ST elevation depression at this time. - Medical Decision Making Stroke Team Activated: Yes Reviewed Inclusion/Exclusion criteria: Yes Was Patient considered for Endovascular Intervention?: Yes IV Alteplase (t-PA) Administered: Yes No contraindications for IV Alteplase (t-PA) administration.: Yes Alteplase (t-PA) risks, benefits, alternative discussed: Yes - with Jodie Patient presented with NIH of 24. Taken emergently to CT and CTA. Radiologist concern for large M1 and M2 left-sided occlusion. Patient evaluated by tele-stroke from [facility]. Decision was made to give TPA bolus and continuous infusion. Per patient's history he did have rectal bleeding but this was over 2 years ago. 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 Risk-benefit was discussed with the who is agreeable with giving TPA. is requesting transfer to [facility] than [facility]. Patient was given TPA and patient will be emergently transferred by helicopter to [facility] for emergent thrombectomy. Spoke with neurologist Dr. Ortiz who is agreeable with transfer. Patient in critical but stable condition at time of transfer. 1. Left M1 and M2 ischemic stroke 2. Right sides hemiparesis 3. Aphasia Critical care time (excluding procedures): 30-74 minutes ED Disposition - Plan for ED Patient: Disposition: [facility] Diagnosis: Stroke Referrals: Sarmad Braun MD [Primary Care Provider] -
--- NOTE | 2020-06-10 14:15 | CM.ED ---
Social Work Telephone call to Jodie Feliciano updated on patient being life flighted. Jodie requesting for this social service technician to call Jodie when patient has left the ED. Jodie reports to still be waiting on son to come and berry picker Jodie. Jodie plans to go straight to [facility] ED. Mateo IBANEZ, JEREMY-S
--- NOTE | 2020-06-10 14:26 | ED.RN ---
1340 talking with social work specialist and ten kboss. aware of need to transfer and to get tpa.
--- NOTE | 2020-06-10 14:34 | CM.ED ---
Social Work Patient leaving the ED via life flight. Telephone call to Jodie. This social media content manager updating Jodie on patient leaving the hospital. Jodie with no further questions. Mateo IBANEZ, LORRIE
[2020-06-10 14:46] LABS: Bedside Glucose 119 mg/dL (70-110)
--- NOTE | 2020-06-10 15:07 | CHAPLAIN ---
Type of Pastoral Visit ___ Initial Visit ___ Follow-up Visit ___ On-call Visit ___ General Patient Visit ___ Spiritual Assessment ___ Family Conference ___ Bereavement _x__ Rapid Response ___ Code Blue ___ Other (describe below) Pastoral Care Referral From ___ Patient ___ Family ___ Nurse ___ Physician ___ Ground Host/Hostess ___ Cma _x__ Other (describe below) Sacrament/Intervention ___ Active listening ___ Anointing ___ Episcopal ___ Bereavement ___ Communion ___ Zoraida exploration ___ ___ Life review ___ Prayer ___ Reconciliation ___ Sacrament of Sick _x__ Supportive presence ___ Wedding ___ Other (describe below) Pastoral Comments responded to stroke alert; patient was in for CT Scan; was told that spouse of pt was to arrive at hospital; waited and spouse did not show up; SW was available and would assist with spouse when she arrived; left ED
== END 2020-06-10 14:30 | disposition short-term general hospital (02) ==
PROVIDERS: Emergency Provider Emergency Medicine; PCP Internal Medicine
DX: I63.9 Cerebral infarction, unspecified (principal); R29.810 Facial weakness; G81.91 Hemiplegia, unspecified affecting right dominant side; R47.81 Slurred speech; R29.723 NIHSS score 23; I10 Essential (primary) hypertension; I25.10 Atherosclerotic heart disease of native coronary artery without angina pectoris; I48.91 Unspecified atrial fibrillation
CPT/HCPCS: 36415; 51702; 70450; 70496; 70498; 80048; 82962; 84484; 85025; 85610; 85730; 93005; 96365; 96375; 99281; 99285; J2997; J7030; Q9967; A4216